=== PATIENT | female | born 1970 | race Caucasian/White ===

== ENCOUNTER 2020-03-16 14:25 | Emergency (ER) | payer MEDICARE, MEDICAID, SELFPAY ==
--- NOTE | ~2020-03-16 | XR_ITS ---
XR foot RT min 3V DATE: 03/16/2020 15:34 INDICATION: Injury 7 months ago; right anterior bridge foot pain TECHNIQUE: 4 views COMPARISON: 08/27/2019 right foot FINDINGS: Os arthritis at the first metatarsophalangeal joint. Osteoarthritic changes are also noted at the articulation of the navicular and medial cuneiform as well as the first tarsometatarsal joint. Prominent new dorsal spur at the dorsal aspect of the first tarsometatarsal joint. Plantar calcaneal enthesopathy. No fracture, dislocation, periosteal reaction or bone destruction. IMPRESSION: Polyarticular osteoarthritis with new prominent dorsal spur at first tarsometatarsal join t Reviewed, dictated and finalized at location A. IMPRESSION: Polyarticular osteoarthritis with new prominent dorsal spur at firs t tarsometatarsal joint
[2020-03-16 14:55] VITALS: BP 101/67; PULSE 61; RESP 14; TEMP 36.4; O2SAT 99
--- NOTE | 2020-03-16 15:26 | ED.LOWEXIN ---
HPI - Extremity Injury (Lower) General Chief Complaint: Extremity Injury, Lower Stated Complaint: sprined right foot Source: patient Mode of arrival: ambulatory Limitations: no limitations History of Present Illness HPI Narrative: patient is a 49-year-old female who injured her foot back in August she states it has been in pain ever since August, and a fairly steady discomfort. Patient stated that today she just felt like it was time to get looked at. She had no further injuries. Patient states she has seen her regular doctor about this. They felt like it might be gout, therefore they increased her medicine. It did not seem to help her foot. patient has good arch supports at home, however does not wear them most of the time. MD complaint: foot injury Onset (ago): month(s) Injury: Right: foot Place: home Severity: moderate Relieving factors: nothing ( Patient states does not completely go away at any time,) Exacerbating factors: weight bearing Context: fall Other symptoms: none Related Data Home Medications Medication Instructions Recorded Confirmed allopurinol 100 mg tablet 100 mg PO DAILY 07/26/19 03/16/20 cyclobenzaprine 10 mg PO PRN 08/27/19 03/16/20 dextroamphetamine-amphetamine 20 mg PO DAILY 08/27/19 03/16/20 [Adderall] fluoxetine 40 mg PO BID 08/27/19 03/16/20 gabapentin 600 mg PO TID 08/27/19 03/16/20 hydrochlorothiazide 12.5 mg PO DAILY 08/27/19 03/16/20 mirabegron [Myrbetriq] 25 mg PO DAILY 08/27/19 03/16/20 mirtazapine 45 mg PO HS 08/27/19 03/16/20 norethindrone-e.estradiol-iron 1 tablet PO DAILY 08/27/19 03/16/20 [Blisovi Fe 1.5/30 (28)] ondansetron HCl 4 mg PO PRN 08/27/19 03/16/20 oxybutynin chloride 10 mg PO DAILY 08/27/19 03/16/20 prazosin 5 mg PO HS 08/27/19 03/16/20 spironolactone 25 mg PO DAILY 08/27/19 03/16/20 oxycodone-acetaminophen 7.5 mg-325 1 tablet PO TID PRN tablet 08/31/19 03/16/20 mg tablet Allergies Allergy/AdvReac Type Severity Reaction Status Date / Time orange juice Allergy Intermediate Hives / Verified 06/13/19 13:58 Red Face Contrast Media AdvReac Intermediate PERFUSE Uncoded 05/24/19 15:00 SWEATING/NAUSEA/VOMITING Review of Systems Review of Systems: All systems reviewed & are unremarkable except as noted in HPI and below PMFSH Past Medical History Medical History Acid reflux Anxiety Bipolar disorder Broken nose X2 Gout History of CVA (cerebrovascular accident) Hypercholesterolemia Hypothyroidism Low blood potassium Schizoaffective disorder Surgical History Surgical History Delivery by section History of gastric bypass Family History Family History Grandparent Hypertension Breast cancer Thyroid disease Son Pancreatitis Liver disease Other Diabetes mellitus Family history of cardiovascular disease Family history of malignant neoplasm Family history of mental disorder Social History Social History Smoking status: Never smoker Alcohol intake: current Exam Const: General: no acute distress and alert Nutritional Appearance: well nourished and obese Orientation/consciousness: patient oriented x3 HENMT: Head: normal to inspection Neck: Neck: normal visual inspection Chest: Chest palpation & inspection: normal inspection of the chest Resp: Effort & Inspection: normal respiratory effort Auscultation: clear to auscultation bilaterally Cardio: Rate: regular rate Rhythm: regular rhythm GI: GI Palp: Yes Soft to palpation and No Tenderness to palpation present (GI) Auscultation: normal bowel sounds : General: Yes no CVA tenderness Skin: General skin exam: normal color Rashes: no rashes Neuro: General: patient oriented x3 and moves all extremities Speech:
[2020-03-16 15:44] VITALS: RESP 14; O2SAT 99
== END 2020-03-16 15:47 | disposition home or self-care (01) ==
PROVIDERS: Emergency Provider Emergency Medicine
DX: M13.871 Other specified arthritis, right ankle and foot (principal)
CPT/HCPCS: 73630; 99282; 99283

== ENCOUNTER 2020-09-13 07:14 | Outpatient (CLI) | payer MEDICARE, MEDICAID, SELFPAY ==
--- NOTE | ~2020-09-13 | XR_ITS ---
XR foot RT standing 2V, XR foot LT standing 2V 09/13/2020 09:52 Indication: Osteoarthritis. Foot pain. Procedure: 2 views of each foot Comparison: 03/16/2020 Findings: There is no mild osteoarthritis of the first metatarsal-phalangeal joints bilaterally, righ t greater than left. Lisfranc joints are intact. No erosive changes. There are small degenerative lynne caneal enthesophytes bilaterally. There are mild-moderate degenerative changes of the right midfoot. Impression: 1: Mild polyarticular osteoarthritis of the feet, right greater than left. Reviewed, dictated and finalized at location A. N WORKER Impression: 1: Mild polyarticular osteoarthritis of the feet, right greater than left. Impression: 1: Mild polyarticular osteoarthritis of the feet, right greater than left.
--- NOTE | ~2020-09-13 | XR_ITS ---
XR hip BI 2V w AP pelvis 09/13/2020 09:52 Indication: Osteoarthritis Procedure: 5 views of the hips including AP pelvis and 2 views each hip Comparison: 03/29/2013 Findings: Pelvic rings are intact. Sacral foramen are symmetric. No significant joint space narrowing . No fracture or traumatic malalignment. No erosive changes. Impression: 1: No significant bone or joint abnormality. Reviewed, dictated and finalized at location A. [employer] Impression: 1: No significant bone or joint abnormality.
--- NOTE | ~2020-09-13 | MR_ITS ---
EXAMINATION: MR foot RT wo/w con DATE: 09/13/2020 09:42 INDICATION: Right foot arthritis. Right foot pain. TECHNIQUE: Magnetic resonance imaging (MRI) of the right foot was performed without and with 17 mL Mu ltiHance intravenous contrast. Sequences included sagittal STIR FSE and T1-weighted FSE and short-axi s and long-axis T1-weighted FSE and T2-weighted FS FSE. Postcontrast sequences included short-axis an d long-axis T1-weighted FS FSE. COMPARISON: Right foot radiographs 09/13/2020, MRI 01/16/2016 FINDINGS: There is moderate hallux valgus. No fracture. There is severe osteoarthritis of medial ho culocuneiform joint and second and third tarsometatarsal joints. There is moderate osteoarthritis of first metatarsophalangeal joint. There is mild osteoarthritis of some of the interphalangeal joints a nd midfoot joints. There are changes of prior sprain of Lisfranc ligament characterized by increased signal intensity. No Lisfranc joint subluxation. The flexor and extensor tendons are normal. The musc le bellies are normal. IMPRESSION: 1. Polyarticular osteoarthritis, mildly worsened from 01/16/2016. No evidence of inflammatory arthropat hy. 2. Moderate hallux valgus. Reviewed, dictated and finalized at location A. 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 Polyarticular osteoarthritis, mildly worsened from 01/16/2016. No evidence of inflammatory arthropathy. 2. Moderate hallux valgus.
--- NOTE | ~2020-09-13 | XR_ITS ---
XR hand BI arthritis min 3V 09/13/2020 09:52 Indication: Osteoarthritis of the hands Procedure: 4 views of each hand Comparison: No prior studies for comparison. Findings: There is mild polyarticular osteoarthritis of the interphalangeal joints, first MCP and CMC joints. No erosive changes. No fracture or traumatic malalignment. No focal soft tissue abnormality. No foreign bodies. Impression: 1: Mild bilateral polyarticular osteoarthritis of the hands. Reviewed, dictated and finalized at location A. EACH COUNSELOR Impression: 1: Mild bilateral polyarticular osteoarthritis of the hands.
[2020-09-13 08:10] LABS: Basophils Percent Auto 0.6 % (0.2-1.2); Eosinophils Absolute Auto 0.3 K/mm3 (0-0.3); Eosinophils Percent Auto 5.4 % (0-4.4); Hemoglobin 11.6 g/dL (12.0-15.0); Immature Granulocyte Absolute 0.02 K/mm3 (0.00-0.031); Immature Granulocyte Percent A 0.4 % (0-0.5); Lymphocytes Absolute Auto 1.36 K/mm3 (0.9-3.2); Mean Corpuscular HGB Conc 32.2 g/dl (32-36); Mean Corpuscular Hemoglobin 30.1 pg (26-34); Mean Corpuscular Volume 93.5 fl (80-100); Mean Platelet Volume 10.1 fl (7.4-10.4); Monocytes Absolute Auto 0.5 K/mm3 (0.1-0.6); Monocytes Percent Auto 10.3 % (2.6-8.5); Neutrophils Absolute Auto 2.8 K/mm3 (1.3-6.7); Neutrophils Percent Auto 56.3 % (45.5-73.1); Platelet Count Result 261 k/mm3 (150-375); Red Blood Count 3.85 M/mm3 (4.2-5.4); Red Cell Distribution Width 13.1 % (11.5-14.5)
[2020-09-13 08:15] LABS: Add Urine Microscopic? YES; Appearance Urine Cloudy (Clear); Bacteria Urine Trace /hpf; Bilirubin Urine Negative (Negative); Blood Urine Negative (Negative); Color Urine Yellow (Yellow); Glucose Urine UA Negative (Negative); Ketones Urine Negative (Negative); Leukocyte Esterase Ur Negative LEU/UL (Negative); Mucus Urine Rare /lpf; Nitrate Urine Negative (Negative); Protein Urine Negative (Negative); RBC Urine 0-2 /hpf (0-2); Specific Grav Ur 1.012 (1.001-1.035); Squamous Epithelial Cell Urine Many /hpf (Few); Urobilinogen Urine Negative mg/dL (<2.0)
[2020-09-13 08:33] LABS: Erythrocyte Sedimentation Rate 19 mm/hr (0-20)
[2020-09-13 08:39] LABS: Alanine Aminotransferase 19 U/L (4-35); Albumin Level 3.8 g/dL (3.5-5.1); Alkaline Phosphatase 52 U/L (38-126); Anion Gap 7 mmol/L (8-16); Aspartate Amino Transferase 30 U/L (14-36); Bilirubin,Total 0.4 mg/dL (0.2-1.3); Blood Urea Nitrogen 15 mg/dL (7-17); Calcium 8.8 mg/dL (8.4-10.2); Carbon Dioxide 24 mmol/L (22-30); Chloride 106 mmol/L (98-107); Creatine Kinase 48 U/L (30-135); Estimated Glomerular Filt Rate > 60; Glucose 84 mg/dL (65-105); Lactate Dehydrogenase 639 U/L (313-618); Potassium 4.5 mmol/L (3.4-5.0); Sodium 137 mmol/L (137-145); Uric Acid 5.9 mg/dL (2.5-7.5)
[2020-09-13 08:40] LABS: Complement C3 104 mg/dL (88-165)
[2020-09-13 08:55] LABS: CRP 2.8 mg/dL (<1.0)
[2020-09-16 20:00] LABS: Anti Cardio Antibody IgM <12 MPL (<=12); Anti Cardiolipin Antibody IgA <11 APL (<=11); Anti Cardiolipin Antibody IgG <14 GPL (<=14)
[2020-09-21 01:00] LABS: Aldolase 3.9 U/L (<=8.1)
== END 2020-09-13 07:15 | disposition home or self-care (01) ==
PROVIDERS: Referring Provider Internal Medicine; Visit Provider Podiatrist Foot & Ankle Surgery
DX: M19.071 Primary osteoarthritis, right ankle and foot (principal); M20.11 Hallux valgus (acquired), right foot; M19.041 Primary osteoarthritis, right hand; M19.042 Primary osteoarthritis, left hand; M19.072 Primary osteoarthritis, left ankle and foot; Z79.899 Other long term (current) drug therapy
CPT/HCPCS: 36415; 73130; 73521; 73620; 73720; 80053; 81001; 82085; 82550; 83615; 84550; 85025; 85613; 85652; 85730; 86140; 86146; 86147; 86160; A9577

== ENCOUNTER 2020-10-03 13:56 | Outpatient (CLI) | payer MEDICARE, MEDICAID, SELFPAY ==
[2020-10-03 14:39] LABS: Add Urine Microscopic? YES; Appearance Urine Clear (Clear); Bacteria Urine Trace /hpf; Bilirubin Urine Negative (Negative); Blood Urine Negative (Negative); Color Urine Straw (Yellow); Glucose Urine UA Negative (Negative); Ketones Urine Negative (Negative); Leukocyte Esterase Ur Negative LEU/UL (Negative); Mucus Urine Rare /lpf; Nitrate Urine Negative (Negative); Protein Urine Negative (Negative); RBC Urine 0-2 /hpf (0-2); Specific Grav Ur 1.006 (1.001-1.035); Squamous Epithelial Cell Urine Rare /hpf (Few); Urobilinogen Urine Negative mg/dL (<2.0); WBC Urine 0-3 /hpf
[2020-10-03 14:43] LABS: Basophils Percent Auto 0.4 % (0.2-1.2); Eosinophils Percent Auto 0.4 % (0-4.4); Hematocrit 35.8 % (37.0-47.0); Hemoglobin 11.6 g/dL (12.0-15.0); Immature Granulocyte Absolute 0.09 K/mm3 (0.00-0.031); Immature Granulocyte Percent A 1.1 % (0-0.5); Lymphocytes Absolute Auto 1.83 K/mm3 (0.9-3.2); Lymphocytes Percent Auto 23.2 % (18.3-44.2); Mean Corpuscular HGB Conc 32.4 g/dl (32-36); Mean Corpuscular Hemoglobin 30.3 pg (26-34); Mean Corpuscular Volume 93.5 fl (80-100); Monocytes Absolute Auto 0.5 K/mm3 (0.1-0.6); Monocytes Percent Auto 5.8 % (2.6-8.5); Neutrophils Absolute Auto 5.5 K/mm3 (1.3-6.7); Neutrophils Percent Auto 69.1 % (45.5-73.1); Platelet Count Result 269 k/mm3 (150-375); Red Blood Count 3.83 M/mm3 (4.2-5.4); Red Cell Distribution Width 13.7 % (11.5-14.5); White Blood Count 7.9 K/mm3 (4.5-10.0)
[2020-10-03 14:53] LABS: Alanine Aminotransferase 21 U/L (4-35); Albumin Level 3.9 g/dL (3.5-5.1); Alkaline Phosphatase 71 U/L (38-126); Anion Gap 2 mmol/L (8-16); Aspartate Amino Transferase 26 U/L (14-36); Bilirubin,Total 0.4 mg/dL (0.2-1.3); Blood Urea Nitrogen 14 mg/dL (7-17); Calcium 9.3 mg/dL (8.4-10.2); Carbon Dioxide 31 mmol/L (22-30); Chloride 103 mmol/L (98-107); Creatine Kinase 45 U/L (30-135); Estimated Glomerular Filt Rate 48; Glucose 75 mg/dL (65-105); Lactate Dehydrogenase 508 U/L (313-618); Potassium 4.3 mmol/L (3.4-5.0); Sodium 136 mmol/L (137-145); Uric Acid 7.5 mg/dL (2.5-7.5)
[2020-10-03 15:32] LABS: Erythrocyte Sedimentation Rate 11 mm/hr (0-20)
[2020-10-05 19:17] LABS: Lupus dRVVT 1:1 Mix Interpreta Not Indicated; Lupus dRVVT Screen 35 sec (<=45); PTT-LA Screen 30 sec (<=40)
[2020-10-10 19:11] LABS: Aldolase 5.2 U/L (<=8.1)
== END 2020-10-03 13:57 | disposition home or self-care (01) ==
PROVIDERS: Visit Provider Internal Medicine
DX: M19.90 Unspecified osteoarthritis, unspecified site (principal); R76.8 Other specified abnormal immunological findings in serum; Z87.39 Personal history of other diseases of the musculoskeletal system and connective tissue; Z79.899 Other long term (current) drug therapy
CPT/HCPCS: 36415; 80053; 81001; 82085; 82550; 83615; 84550; 85025; 85613; 85652; 85730; 86146

== ENCOUNTER 2020-10-22 07:50 | Outpatient (CLI) | payer MEDICARE, MEDICAID, SELFPAY ==
--- NOTE | ~2020-10-22 | MM_ITS ---
EXAMINATION: MM screening clint BI w mariia HISTORY: Screening mammogram TECHNIQUE: Craniocaudal and mediolateral oblique 3-D tomosynthesis images were obtained and synthetic 2-D images were generated. CAD analysis was submitted and interpreted. COMPARISON: 06/10/2016, 03/18/2013 bilateral digital screening mammogram examinations BREAST PARENCHYMAL COMPOSITION: There are scattered areas of fibroglandular density. FINDINGS: There is no evidence of suspicious mass, calcification, or architectural distortion to sugg est malignancy in either breast. There has been no suspicious interval change. IMPRESSION: 1. No mammographic evidence of malignancy. 2. Recommend routine screening mammography in one year. BI-RADS Category 1: Negative Reviewed, dictated and finalized at location A. ATRIC ONCOLOGIST
== END 2020-10-22 07:51 | disposition home or self-care (01) ==
LOC: ANHIMG 07:54
PROVIDERS: Visit Provider Urology
DX: Z12.31 Encounter for screening mammogram for malignant neoplasm of breast (principal)
CPT/HCPCS: 77063; 77067

== ENCOUNTER 2020-11-22 10:57 | Outpatient (CLI) | payer MEDICARE, MEDICAID, SELFPAY ==
[2020-11-22 11:55] LABS: Hematocrit 40.7 % (37.0-47.0); Hemoglobin 12.9 g/dL (12.0-15.0); Mean Corpuscular HGB Conc 31.7 g/dl (32-36); Mean Corpuscular Hemoglobin 30.1 pg (26-34); Mean Corpuscular Volume 94.9 fl (80-100); Mean Platelet Volume 10.2 fl (7.4-10.4); Platelet Count Result 352 k/mm3 (150-375); Red Blood Count 4.29 M/mm3 (4.2-5.4); Red Cell Distribution Width 13.2 % (11.5-14.5); White Blood Count 5.8 K/mm3 (4.5-10.0)
[2020-11-22 11:59] LABS: Add Urine Microscopic? YES; Appearance Urine Cloudy (Clear); Bilirubin Urine Negative (Negative); Blood Urine 2+ (Negative); Color Urine Yellow (Yellow); Glucose Urine UA Negative (Negative); Ketones Urine Negative (Negative); Leukocyte Esterase Ur Negative LEU/UL (Negative); Mucus Urine Rare /lpf; Nitrate Urine Negative (Negative); Protein Urine Negative (Negative); RBC Urine 0-2 /hpf (0-2); Specific Grav Ur 1.009 (1.001-1.035); Squamous Epithelial Cell Urine Many /hpf (Few); Urobilinogen Urine Negative mg/dL (<2.0); WBC Urine 0-3 /hpf
[2020-11-22 12:11] LABS: Alanine Aminotransferase 16 U/L (4-35); Albumin Level 4.1 g/dL (3.5-5.1); Alkaline Phosphatase 91 U/L (38-126); Anion Gap 6 mmol/L (8-16); Aspartate Amino Transferase 25 U/L (14-36); Bilirubin,Total 0.3 mg/dL (0.2-1.3); Blood Urea Nitrogen 10 mg/dL (7-17); CRP 1.9 mg/dL (<1.0); Calcium 9.4 mg/dL (8.4-10.2); Carbon Dioxide 26 mmol/L (22-30); Chloride 107 mmol/L (98-107); Estimated Glomerular Filt Rate > 60; Glucose 104 mg/dL (65-105); Potassium 4.4 mmol/L (3.4-5.0); Sodium 139 mmol/L (137-145); Uric Acid 3.6 mg/dL (2.5-7.5)
[2020-11-22 12:15] LABS: Complement C3 107 mg/dL (88-165)
[2020-11-22 12:21] LABS: Erythrocyte Sedimentation Rate 6 mm/hr (0-20)
== END 2020-11-22 10:58 | disposition home or self-care (01) ==
PROVIDERS: Visit Provider Internal Medicine
DX: R76.8 Other specified abnormal immunological findings in serum (principal); M35.9 Systemic involvement of connective tissue, unspecified; M19.90 Unspecified osteoarthritis, unspecified site
CPT/HCPCS: 36415; 80053; 81001; 84550; 85027; 85652; 86140; 86160; 86225

== ENCOUNTER 2020-12-21 15:02 | Outpatient (CLI) | payer MEDICARE, MEDICAID, SELFPAY ==
--- NOTE | 2020-12-21 | ECG_ITS ---
Measurements Intervals [place] Rate: 78 P: 44 VT: 187 QRS: -27 QRSD: 87 T: 29 QT: 376 QTc: 430 Interpretive Statements SINUS RHYTHM NORMAL ECG Electronically Signed On 12-21-2020 15:54:59 CDT by Juarez Pascal D.O.
== END 2020-12-21 15:03 | disposition home or self-care (01) ==
PROVIDERS: PCP Family Medicine
DX: Z79.899 Other long term (current) drug therapy (principal)
CPT/HCPCS: 93005

== ENCOUNTER 2020-12-25 16:18 | Emergency (ER) | payer MEDICARE, MEDICAID, SELFPAY ==
--- NOTE | ~2020-12-25 | XR_ITS ---
EXAMINATION: XR chest 2V DATE: 12/25/2020 17:08 INDICATION: Left posterior chest pain. TECHNIQUE: Frontal and lateral views of the chest were obtained. COMPARISON: Chest 2 views 01/23/2015 FINDINGS: The chest demonstrates clear lungs without pneumonia, pleural effusion, or pneumothorax. Th e heart size is normal. IMPRESSION: 1. No acute cardiopulmonary disease. Reviewed, dictated and finalized at location A.
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
[2020-12-25 16:49] VITALS: BP 149/108; PULSE 98; RESP 20; TEMP 36.2; O2SAT 100
[2020-12-25] MEDS: NEOMYCIN/POLYMYXIN/BACITRACIN OINTMENT 15 GM TUBE 1 APPLIC (17:07)
[2020-12-25] MEDS: LIDOCAINE HCL 2% JELLY 5 ML TUBE 1 APPLIC TOPICAL (17:07)
[2020-12-25 18:14] VITALS: BP 138/101; PULSE 85; RESP 20; TEMP 36.7; O2SAT 98
== END 2020-12-25 18:16 | disposition home or self-care (01) ==
PROVIDERS: Emergency Provider Emergency Medicine; PCP Family Medicine
DX: S09.90XA Unspecified injury of head, initial encounter (principal); T14.8XXA Other injury of unspecified body region, initial encounter
CPT/HCPCS: 70450; 71046; 99283; 99284; A9270

== ENCOUNTER 2021-01-15 15:36 | Outpatient (CLI) | payer MEDICARE, MEDICAID, SELFPAY ==
--- NOTE | ~2021-01-15 | XR_ITS ---
EXAMINATION: XR lumbar spine 2-3V DATE: 01/15/2021 16:17 INDICATION: Generalized back pain. TECHNIQUE: Anteroposterior and lateral views of the lumbar spine, and cone-down lateral view of the l umbosacral junction were obtained. COMPARISON: 11/09/2017 FINDINGS: 1-2 mm anterolisthesis L2 on L3 and 3 mm anterolisthesis L4 on L5. Vertebral body heights are normal. Multilevel mild disc height loss from T12-L1 through L4-L5. Mild to moderate lower lumbar predominan t facet osteoarthritis. Sacrum and bilateral sacral iliac joints are unremarkable. Suture lines in th e epigastric region. IMPRESSION: 1. Interval progression of mild to moderate lumbar spondylosis. Reviewed, dictated and finalized at location A.
--- NOTE | ~2021-01-15 | XR_ITS ---
EXAMINATION:XR_CERV2-3V_CR DATE: 01/15/2021 16:16 INDICATION: Neck pain TECHNIQUE: AP, lateral, lateral swimmers and odontoid views of the cervical spine are provided. COMPARISON: 02/22/2016 FINDINGS: 1-2 mm anterolisthesis C3 on C4. 3 mm anterolisthesis C4 on C5. Odontoid is intact. Osteoarthritis at the atlantoaxial articulation. Vertebral body heights are normal. Mild disc height loss at C4-C5, mi ld to moderate disc height loss at C5-C6 and moderate disc height loss at C6-C7. Moderate to severe f acet osteoarthritis at C2-C3 through C4-C5 and C6-C7. Prevertebral soft tissues are normal. IMPRESSION: 1. Moderate cervical spondylosis. Reviewed, dictated and finalized at location A.
--- NOTE | ~2021-01-15 | XR_ITS ---
EXAMINATION: XR shoulder LT min 2V, XR shoulder RT min 2V DATE: 01/15/2021 16:18 INDICATION: TECHNIQUE: 1. AP internally and externally rotated, AP oblique externally rotated and transscapular Y views of t he left shoulder were obtained. 2. AP internally and externally rotated, AP oblique externally rotated and transscapular Y views of t he right shoulder were obtained. COMPARISON: None FINDINGS: Normal alignment at both shoulders. No fracture.Lateral glenohumeral and acromioclavicular joints ar e normal. Soft tissues are unremarkable. Visualized portions of the lungs are clear. IMPRESSION: Negative bilateral shoulder radiographs. Reviewed, dictated and finalized at location A. IMPRESSION: Negative bilateral shoulder radiographs.
--- NOTE | ~2021-01-15 | XR_ITS ---
EXAMINATION: XR knee LT 2V, XR knee RT 2V DATE: 01/15/2021 16:16 INDICATION: Bilateral knee pain TECHNIQUE: 1. AP and lateral views of the left knee were obtained. 2. AP and lateral views of the right knee were obtained. COMPARISON: Bilateral knee radiographs dated 05/06/2018 FINDINGS: Normal alignment at both knees. No fracture. Again seen is mild bilateral patellofemoral osteoarthrit is with tiny marginal osteophytes. Soft tissues are unremarkable. No knee joint effusions. IMPRESSION: 1. Unchanged mild bilateral patellofemoral osteoarthritis. Reviewed, dictated and finalized at location A. IMPRESSION: 1. Unchanged mild bilateral patellofemoral osteoarthritis.
== END 2021-01-15 15:37 | disposition home or self-care (01) ==
LOC: CHSIMG 15:40
PROVIDERS: PCP Family Medicine; Visit Provider Pain Medicine Interventional Pain Medicine
DX: M54.16 Radiculopathy, lumbar region (principal); M25.519 Pain in unspecified shoulder; M54.12 Radiculopathy, cervical region; G89.4 Chronic pain syndrome; M54.17 Radiculopathy, lumbosacral region; M25.569 Pain in unspecified knee
CPT/HCPCS: 72040; 72100; 73030; 73560

== ENCOUNTER 2021-11-25 15:14 | Outpatient (CLI) | payer MEDICARE, MEDICAID, SELFPAY ==
[2021-11-25 15:31] LABS: Hematocrit 35.9 % (35.0-49.0); Hemoglobin 11.4 g/dL (12.0-15.0); Mean Corpuscular HGB Conc 31.8 g/dL (32.0-36.0); Mean Corpuscular Hemoglobin 29.7 pg (27.0-31.0); Mean Corpuscular Volume 93.5 fL (78.0-102.0); Mean Platelet Volume 10.3 fl (9.2-11.8); Platelet Count Result 340 K/mm3 (150-420); Red Blood Count 3.84 M/mm3 (4.20-5.40); Red Cell Distribution Width 13.2 % (11.6-14.4); White Blood Count 7.3 K/mm3 (4.8-10.8)
[2021-11-25 15:51] LABS: Add Urine Microscopic? NO; Appearance Urine Clear (Clear); Bilirubin Urine Negative (Negative); Blood Urine Negative (Negative); Color Urine Yellow (Yellow); Glucose Urine UA Negative (Negative); Ketones Urine Negative (Negative); Leukocyte Esterase Ur Negative LEU/UL (Negative); Nitrate Urine Negative (Negative); Protein Urine Negative (Negative); Specific Grav Ur >= 1.030 (1.010-1.020); Urobilinogen Urine 0.2 mg/dL (0.2-1.0)
[2021-11-25 16:17] LABS: Alanine Aminotransferase 48 U/L (14-59); Albumin Level 3.2 g/dL (3.4-5.0); Alkaline Phosphatase 178 U/L (46-116); Anion Gap 11 mmol/L (8-16); Aspartate Amino Transferase 28 U/L (15-37); Bilirubin,Total 0.2 mg/dL (0.00-1.00); Blood Urea Nitrogen 12 mg/dL (7-18); CRP 2.6 mg/dL (0.0-0.9); Calcium 8.8 mg/dL (8.5-10.1); Carbon Dioxide 24 mmol/L (21-32); Chloride 105 mmol/L (98-108); Estimated Glomerular Filt Rate > 60; Glucose 138 mg/dL (70-99); Osmolality Calculated 291 mOsm/kg (285-295); Potassium 4.5 mmol/L (3.5-5.1); Sodium 140 mmol/L (136-145); Total Protein 6.6 g/dL (6.4-8.2)
[2021-11-25 16:44] LABS: Erythrocyte Sedimentation Rate 30 mm/hr (0-20)
== END 2021-11-25 15:15 | disposition home or self-care (01) ==
LOC: CHSLAB 15:20
PROVIDERS: PCP Family Medicine; Visit Provider Internal Medicine
DX: M35.9 Systemic involvement of connective tissue, unspecified (principal); M19.90 Unspecified osteoarthritis, unspecified site
CPT/HCPCS: 36415; 80053; 81003; 85027; 85652; 86140

== ENCOUNTER 2022-03-12 21:34 | Emergency (ER) | payer MEDICARE, MEDICAID, SELFPAY ==
[2022-03-12] VITALS (11 sets, daily range): BP systolic 109–127; BP diastolic 54–73; PULSE 51–65; RESP 11–18; O2SAT 99–100
--- NOTE | 2022-03-12 21:52 | ED.GENADULT ---
HPI - General Adult General Stated complaint: low blood pressure Time Seen by Provider: 03/12/22 21:52 Source: patient and RN notes reviewed Mode of arrival: wheelchair Limitations: no limitations Related Data Home Medications Medication Instructions Recorded Confirmed dextroamphetamine-amphetamine 20 30 mg PO DAILY 08/27/19 04/30/21 mg tablet (Adderall) fluoxetine 40 mg capsule 60 mg PO HS 08/27/19 04/30/21 gabapentin 600 mg tablet 600 mg PO TID 08/27/19 04/30/21 mirabegron 25 mg tablet,extended 25 mg PO DAILY 08/27/19 04/30/21 release 24 hr (Myrbetriq) mirtazapine 45 mg tablet 45 mg PO HS 08/27/19 04/30/21 ondansetron HCl 4 mg tablet 4 mg PO PRN 08/27/19 04/30/21 oxybutynin chloride 10 mg 10 mg PO DAILY 08/27/19 04/30/21 tablet,extended release 24 hr (Ditropan XL) prazosin 5 mg capsule 5 mg PO HS 08/27/19 04/30/21 oxycodone-acetaminophen 7.5 mg-325 1 tablet PO TID PRN Pain 08/31/19 04/30/21 mg tablet (Percocet) aspirin 81 mg tablet 81 mg PO DAILY 12/25/20 04/30/21 diazepam 5 mg tablet 5 mg PO BID PRN Anxiety 12/25/20 04/30/21 levothyroxine 75 mcg tablet 50 mcg PO DAILY 12/25/20 04/30/21 lidocaine 5 % topical ointment 1 applic topical BID PRN Pain 12/25/20 04/30/21 metoclopramide HCl 5 mg tablet 5 mg PO TID 12/25/20 04/30/21 norethindrone 1.5 mg-ethinyl 1 tablet PO DAILY 12/25/20 04/30/21 estradiol 30 mcg(21)/iron 75 mg(7) tablet (Aurovela Fe 1.5/30 (28)) nortriptyline 50 mg capsule 100 mg PO DAILY 12/25/20 04/30/21 pantoprazole 40 mg tablet,delayed 40 mg PO BID 12/25/20 04/30/21 release potassium chloride 20 mEq oral 20 meq PO BID 12/25/20 04/30/21 packet (Klor-Con) propranolol 40 mg tablet 40 mg PO DAILY 12/25/20 04/30/21 rifaximin 550 mg tablet (Xifaxan) 550 mg PO DAILY 12/25/20 04/30/21 Allergies Allergy/AdvReac Type Severity Reaction Status Date / Time orange juice Allergy Intermediate Hives / Verified 11/29/21 10:29 Red Face Contrast Media AdvReac Intermediate PERFUSE Uncoded 11/29/21 10:29 SWEATING/NAUSEA/VOMITING PMFSH Past Medical History Medical History Acid reflux Anxiety Bipolar disorder Broken nose X2 Generalized osteoarthritis of multiple sites Gout H/O: gout (~2015) History of CVA (cerebrovascular accident) Hypercholesterolemia Hypothyroidism Low blood potassium 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 Gender identity (if verbalized by the patient): Female Discharge Plan Discharge Prescriptions: No Action fluoxetine 40 mg capsule 60 mg PO HS gabapentin 600 mg tablet 600 mg PO TID oxybutynin chloride [Ditropan XL] 10 mg tablet extended release 24hr 10 mg PO DAILY ondansetron HCl 4 mg tablet 4 mg PO PRN prazosin 5 mg capsule 5 mg PO HS mirtazapine 45 mg tablet 45 mg PO HS Myrbetriq 25 mg tablet extended release 24 hr 25 mg PO DAILY dextroamphetamine-amphetamine [Adderall] 20 mg Tablet 30 mg PO DAILY norethindrone-e.estradiol-iron [Aurovela Fe 1.5/30 (28)] 1.5 mg-30 mcg (21)/75 mg (7) tablet 1 tablet PO DAILY potassium chloride [Klor-Con] 20 mEq packet 20 meq PO BID propranolol 40 mg tablet 40 mg PO DA
--- NOTE | 2022-03-12 22:09 | ED.DIZZY ---
HPI - Dizziness General Chief Complaint: Dizziness Stated Complaint: low blood pressure Time Seen by Provider: 03/12/22 21:52 Source: patient and RN notes reviewed Mode of arrival: wheelchair Limitations: no limitations History of Present Illness MD elicited complaint: dizziness Pertinent past history: other ( new medications) Onset (ago): day(s) (5) Timing: gradual onset Severity: moderate Related Data Home Medications Medication Instructions Recorded Confirmed mirabegron 25 mg tablet,extended 25 mg PO DAILY 08/27/19 03/12/22 release 24 hr (Myrbetriq) mirtazapine 45 mg tablet 45 mg PO HS 08/27/19 03/12/22 oxybutynin chloride 10 mg 10 mg PO DAILY 08/27/19 03/12/22 tablet,extended release 24 hr (Ditropan XL) prazosin 5 mg capsule 5 mg PO HS 08/27/19 03/12/22 diazepam 5 mg tablet 5 mg PO BID PRN Anxiety 12/25/20 03/12/22 levothyroxine 75 mcg tablet 50 mcg PO DAILY 12/25/20 03/12/22 norethindrone 1.5 mg-ethinyl 1 tablet PO DAILY 12/25/20 03/12/22 estradiol 30 mcg(21)/iron 75 mg(7) tablet (Aurovela Fe 1.5/30 (28)) pantoprazole 40 mg tablet,delayed 40 mg PO BID 12/25/20 03/12/22 release potassium chloride 20 mEq oral 20 meq PO BID 12/25/20 03/12/22 packet (Klor-Con) propranolol 40 mg tablet 40 mg PO DAILY 12/25/20 03/12/22 buprenorphine HCl 2 mg sublingual 1 tablet sublingual BID 03/12/22 03/12/22 tablet diclofenac sodium 1 % topical gel 1 ea topical PRN PRN Pain 03/12/22 03/12/22 esomeprazole magnesium 40 mg 1 cap PO DAILY 03/12/22 03/12/22 capsule,delayed release fluticasone furoate 100 1 ea inhalation DAILY 03/12/22 03/12/22 mcg-vilanterol 25 mcg/dose inhalation powder (Breo Ellipta) venlafaxine 50 mg tablet 1 tablet PO DAILY 03/12/22 03/12/22 ziprasidone HCl 80 mg capsule 1 cap PO DAILY 03/12/22 03/12/22 Allergies Allergy/AdvReac Type Severity Reaction Status Date / Time orange juice Allergy Intermediate Hives / Verified 03/12/22 22:15 Red Face Contrast Media AdvReac Intermediate PERFUSE Uncoded 03/12/22 22:15 SWEATING/NAUSEA/VOMITING PMFSH Past Medical History Medical History Acid reflux Anxiety Bipolar disorder Broken nose X2 Generalized osteoarthritis of multiple sites Gout H/O: gout (~2015) History of CVA (cerebrovascular accident) Hypercholesterolemia Hypothyroidism Low blood potassium Other fpc (current) drug therapy Schizoaffective disorder Undifferentiated connective tissue disease Surgical History Surgical History Delivery by section History of gastric bypass Family History Family History Grandparent Hypertension Breast cancer Thyroid disease Son Pancreatitis Liver disease Other Diabetes mellitus Family history of cardiovascular disease Family history of malignant neoplasm Family history of mental disorder Social History Social History Smoking status: Never smoker Alcohol intake: current Alcohol use details: Pt drinks occasionally. Gender identity (if verbalized by the patient): Female Exam Const: General: no acute distress, alert and ill appearing acutely Nutritional Appearance: well nourished Orientation/consciousness: patient oriented x3 HENMT: Head: normal to inspection Face and sinus: normal facial exam Eyes: Conjunctivae: conjunctivae normal Pupils: Equal, round and reactive pupils present EOM: EOMs intact bilaterally Neck: Neck: normal visual inspection Resp: Effort & Inspection: normal respiratory effort Auscultation: clear to auscultation bilaterally Cardio: Rate: regular rate Rhythm: regular rhythm GI: GI Palp: Yes Soft to palpation and No Tenderness to palpation present (GI) Auscultation: normal bowel sounds Back/Spine/Pelvis: Cervical Spine: cervical ROM normal
[2022-03-12 22:22] LABS: Basophils Absolute Auto 0.04 K/mm3 (0.00-0.10); Basophils Percent Auto 0.5 % (0.0-1.0); Eosinophils Absolute Auto 0.45 K/mm3 (0.02-0.50); Eosinophils Percent Auto 5.6 % (1.0-6.0); Hematocrit 35.2 % (35.0-49.0); Hemoglobin 11.5 g/dL (12.0-15.0); Immature Granulocyte Absolute 0.02 K/mm3 (0.00-0.00); Immature Granulocyte Percent A 0.3 % (0.0-0.0); Lymphocytes Absolute Auto 2.29 K/mm3 (1.10-4.50); Lymphocytes Percent Auto 28.7 % (18.0-42.0); Mean Corpuscular HGB Conc 32.7 g/dL (32.0-36.0); Mean Corpuscular Hemoglobin 28.6 pg (27.0-31.0); Mean Corpuscular Volume 87.6 fL (78.0-102.0); Mean Platelet Volume 11.7 fl (9.2-11.8); Monocytes Absolute Auto 0.71 K/mm3 (0.10-0.90); Monocytes Percent Auto 8.9 % (2.0-11.0); Neutrophils Absolute Auto 4.5 K/mm3 (1.7-7.2); Platelet Count Result 238 K/mm3 (150-420); Red Blood Count 4.02 M/mm3 (4.20-5.40); Red Cell Distribution Width 13.4 % (11.6-14.4)
--- NOTE | 2022-03-12 22:24 | PC.NURSE ---
PT HAS UTILIZED THE CALL LIGHT X2. STATING SHE NEEDED HER BP RECHECKED AND WOULD LIKE IT TO CYCLE ON A ROUTINE INTERVAL, ASSURED PT THAT THIS WILL OCCUR, HOWEVER SHE DOES HAVE TO BE ON THE MONITOR FOR A MINIMUM OF 15 MINUTES BEFORE IT WILL RETAKE. PT IS ANXIOUS, SLIGHTLY BIZARRE BEHAVIOR NOTED. PT FLOPPED ONTO THE STRETCHER ON HER ABD, STATING, THAT'S HOW I DO IT. PT HAS FRIEND AT BEDSIDE. PT REPORTS SX ONSET OF 2 MONTHS THAT SHE IS DIZZY WITH STANDING, AND FEELS IF SHE IS GOING TO PASS OUT, SHE WAS ABLE TO WATCH HER GRANDCHILD YESTERDAY AND TAKE HER CAR INTO THE SHOP THE DAY BEFORE WITHOUT ANY ISSUES.
[2022-03-12 22:37] LABS: Alanine Aminotransferase 25 U/L (14-59); Albumin Level 2.8 g/dL (3.4-5.0); Alkaline Phosphatase 102 U/L (46-116); Anion Gap 10 mmol/L (8-16); Aspartate Amino Transferase 18 U/L (15-37); Bilirubin,Total 0.3 mg/dL (0.00-1.00); Blood Urea Nitrogen 13 mg/dL (7-18); Calcium 8.6 mg/dL (8.5-10.1); Carbon Dioxide 24 mmol/L (21-32); Chloride 108 mmol/L (98-108); Estimated Glomerular Filt Rate 47; Glucose 96 mg/dL (70-99); Magnesium 1.5 mg/dL (1.8-2.4); Osmolality Calculated 294 mOsm/kg (285-295); Potassium 3.6 mmol/L (3.5-5.1); Sodium 142 mmol/L (136-145)
[2022-03-12] MEDS: MECLIZINE HCL 25 MG TABLET PO (22:40)
--- NOTE | 2022-03-12 23:27 | PC.NURSE ---
PT REPORTS DIZZINESS IS BETTER, REPORTS SHE COULD NOT MOVE HER HEAD FROM SIDE TO SIDE WITHOUT BEING DIZZY. PT REPORTS SX IMPROVED POST MEDICATION. WILL CONTINUE TO MONITOR.
== END 2022-03-12 23:40 | disposition home or self-care (01) ==
PROVIDERS: Emergency Provider Emergency Medicine; PCP Family Medicine
DX: H81.10 Benign paroxysmal vertigo, unspecified ear (principal); E83.42 Hypomagnesemia; K21.9 Gastro-esophageal reflux disease without esophagitis; Z86.73 Personal history of transient ischemic attack (TIA), and cerebral infarction without residual deficits; E03.9 Hypothyroidism, unspecified; E78.00 Pure hypercholesterolemia, unspecified; Z79.899 Other long term (current) drug therapy
CPT/HCPCS: 36415; 80053; 83735; 85025; 99283; A9270

== ENCOUNTER 2022-04-01 09:01 | Outpatient (CLI) | payer MEDICARE, MEDICAID, SELFPAY ==
[2022-04-01 09:30] LABS: Hematocrit 35.3 % (37.0-47.0); Hemoglobin 11.4 g/dL (12.0-15.0); Mean Corpuscular HGB Conc 32.3 g/dl (32-36); Mean Corpuscular Hemoglobin 28.4 pg (26-34); Mean Platelet Volume 11.2 fl (7.4-10.4); Platelet Count Result 230 k/mm3 (150-375); Red Blood Count 4.01 M/mm3 (4.2-5.4); Red Cell Distribution Width 13.8 % (11.5-14.5); White Blood Count 5.5 K/mm3 (4.5-10.0)
[2022-04-01 09:54] LABS: Alanine Aminotransferase 20 U/L (6-35); Albumin Level 3.6 g/dL (3.5-5.1); Alkaline Phosphatase 81 U/L (38-126); Anion Gap 3 mmol/L (8-16); Aspartate Amino Transferase 24 U/L (14-36); Bilirubin,Total 0.2 mg/dL (0.2-1.3); Blood Urea Nitrogen 6 mg/dL (7-17); CRP < 0.5 mg/dL (<1.0); Calcium 8.7 mg/dL (8.4-10.2); Carbon Dioxide 25 mmol/L (22-30); Chloride 112 mmol/L (98-107); Estimated Glomerular Filt Rate 52; Glucose 99 mg/dL (65-110); Potassium 3.9 mmol/L (3.4-5.0); Sodium 140 mmol/L (137-145); Uric Acid 5.5 mg/dL (2.5-7.5)
[2022-04-01 10:08] LABS: Bacteria Urine 1+ /hpf; Mucus Urine Rare /lpf; RBC Urine 0-2 /hpf (0-2); Squamous Epithelial Cell Urine Rare /hpf (Few); WBC Urine 0-3 /hpf
[2022-04-01 10:26] LABS: Appearance Urine Clear (Clear); Bilirubin Urine Negative (Negative); Blood Urine Negative (Negative); Color Urine Yellow (Yellow); Glucose Urine UA Negative (Negative); Ketones Urine Negative (Negative); Leukocyte Esterase Ur Negative LEU/UL (Negative); Nitrate Urine Negative (Negative); Protein Urine Negative (Negative); Urobilinogen Urine 0.2 mg/dL (<2.0); pH Urine 5.5 (5.0-9.0)
[2022-04-01 10:29] LABS: Add Urine Microscopic? NO
[2022-04-01 11:09] LABS: Erythrocyte Sedimentation Rate 9 mm/hr (0-20)
== END 2022-04-01 09:02 | disposition home or self-care (01) ==
PROVIDERS: PCP Family Medicine; Visit Provider Internal Medicine
DX: M35.9 Systemic involvement of connective tissue, unspecified (principal); M19.90 Unspecified osteoarthritis, unspecified site; Z87.39 Personal history of other diseases of the musculoskeletal system and connective tissue
CPT/HCPCS: 36415; 80053; 81003; 84550; 85027; 85652; 86140

== ENCOUNTER 2022-07-11 17:11 | Emergency (ER) | payer MEDICARE, MEDICAID, SELFPAY ==
--- NOTE | 2022-07-11 17:14 | ED.FEMALEGU ---
HPI - Female Genitourinary General Chief complaint: Urogenital-Female Stated complaint: possible uti Time Seen by Provider: 07/11/22 17:19 Source: patient and RN notes reviewed Mode of arrival: ambulatory Limitations: no limitations History of Present Illness MD elicited complaint: dysuria and UTI Onset (ago): week(s) (2) Severity: moderate Urinary symptoms: Dysuria, Urgency and Frequency Exacerbating factors: urination Relieving factors: none Associated symptoms: denies other symptoms Related Data Home Medications Medication Instructions Recorded Confirmed mirabegron 25 mg tablet,extended 25 mg PO DAILY 08/27/19 03/12/22 release 24 hr (Myrbetriq) mirtazapine 45 mg tablet 45 mg PO HS 08/27/19 03/12/22 oxybutynin chloride 10 mg 10 mg PO DAILY 08/27/19 03/12/22 tablet,extended release 24 hr (Ditropan XL) prazosin 5 mg capsule 5 mg PO HS 08/27/19 03/12/22 diazepam 5 mg tablet 5 mg PO BID PRN Anxiety 12/25/20 03/12/22 levothyroxine 75 mcg tablet 50 mcg PO DAILY 12/25/20 03/12/22 norethindrone 1.5 mg-ethinyl 1 tablet PO DAILY 12/25/20 03/12/22 estradiol 30 mcg(21)/iron 75 mg(7) tablet (Aurovela Fe 1.5/30 (28)) pantoprazole 40 mg tablet,delayed 40 mg PO BID 12/25/20 03/12/22 release potassium chloride 20 mEq oral 20 meq PO BID 12/25/20 03/12/22 packet (Klor-Con) propranolol 40 mg tablet 40 mg PO DAILY 12/25/20 03/12/22 buprenorphine HCl 2 mg sublingual 1 tablet sublingual BID 03/12/22 03/12/22 tablet diclofenac sodium 1 % topical gel 1 ea topical PRN PRN Pain 03/12/22 03/12/22 esomeprazole magnesium 40 mg 1 cap PO DAILY 03/12/22 03/12/22 capsule,delayed release fluticasone furoate 100 1 ea inhalation DAILY 03/12/22 03/12/22 mcg-vilanterol 25 mcg/dose inhalation powder (Breo Ellipta) venlafaxine 50 mg tablet 1 tablet PO DAILY 03/12/22 03/12/22 ziprasidone HCl 80 mg capsule 1 cap PO DAILY 03/12/22 03/12/22 buprenorphine HCl 2 mg sublingual 2 mg sublingual DAILY 04/01/22 tablet magnesium oxide 400 mg PO DAILY 04/01/22 Allergies Allergy/AdvReac Type Severity Reaction Status Date / Time orange juice Allergy Intermediate Hives / Verified 04/01/22 09:59 Red Face Contrast Media AdvReac Intermediate PERFUSE Uncoded 04/01/22 09:59 SWEATING/NAUSEA/VOMITING Review of Systems Review of Systems: All systems reviewed & are unremarkable except as noted in HPI and below Constitutional: Constitutional: Denies chills Gastrointestinal: Gastrointestinal: Denies nausea and Denies vomiting PMFSH Past Medical History Medical History (Updated 07/11/22 @ 17:48 by Stanley Arellano MD) Acid reflux Anxiety Bipolar disorder Broken nose X2 Generalized osteoarthritis of multiple sites Gout H/O: gout (~2015) History of CVA (cerebrovascular accident) Hypercholesterolemia Hypothyroidism Low blood potassium Other [facility] (current) drug therapy Schizoaffective disorder Undifferentiated connective tissue disease Surgical History Surgical History (Updated 07/11/22 @ 17:20 by Stanley Arellano MD) Delivery by section History of gastric bypass History of rhinoplasty Hx of cholecystectomy Family History Family History Grandparent Hypertension Breast cancer Thyroid disease Son Pancreatitis Liver disease Other Diabetes mellitus Family history of cardiovascular disease Family history of malignant neoplasm Family history of mental disorder Social History Social History Smoking status: Never smoker Alcohol intake: current Alcohol use details: Pt drinks occasionally. Gender identity (if verbalized by the patient): Female Exam Const: General: healthy appearing and no acute distress Nutritional Appearance: well nourished Orientation/consciousness: patient oriented x3 HENMT: Head: normal to inspection Ears: external ears normal Eyes: Co
[2022-07-11 17:18] VITALS: BP 137/92; PULSE 74; RESP 16; TEMP 36.5; O2SAT 99
[2022-07-11 17:20] VITALS: BP 138/92; PULSE 72; RESP 20; TEMP 36.5; O2SAT 100
[2022-07-11 17:27] LABS: Appearance Urine Clear (Clear); Bilirubin Urine Negative (Negative); Blood Urine Negative (Negative); Glucose Urine UA Negative (Negative); Ketones Urine Negative (Negative); Leukocyte Esterase Ur 1+ LEU/UL (Negative); Nitrate Urine Negative (Negative); Protein Urine Negative (Negative); Specific Grav Ur <= 1.005 (1.010-1.020); Urobilinogen Urine 0.2 mg/dL (0.2-1.0)
[2022-07-11 17:34] LABS: Add Urine Microscopic? YES; Bacteria Urine 1+ /hpf; Color Urine Light Yellow (Yellow); RBC Urine None seen /hpf (0-2); Squamous Epithelial Cell Urine Few /hpf (Few)
[2022-07-11 18:03] VITALS: BP 138/92; PULSE 72; RESP 20; TEMP 36.5; O2SAT 100
== END 2022-07-11 18:10 | disposition home or self-care (01) ==
PROVIDERS: Emergency Provider Emergency Medicine; PCP Family Medicine
DX: N30.00 Acute cystitis without hematuria (principal); E78.00 Pure hypercholesterolemia, unspecified; E03.9 Hypothyroidism, unspecified
CPT/HCPCS: 81001; 87077; 87086; 87088; 87186; 99283

== ENCOUNTER 2023-06-10 10:34 | Outpatient (CLI) | payer MEDICARE, MEDICAID, SELFPAY ==
[2023-06-10 10:52] LABS: Hemoglobin 11.2 g/dL (12.0-15.0); Mean Corpuscular HGB Conc 32.9 g/dL (32.0-36.0); Mean Corpuscular Hemoglobin 29.6 pg (27.0-31.0); Mean Corpuscular Volume 89.9 fL (78.0-102.0); Platelet Count Result 227 K/mm3 (150-420); Red Blood Count 3.78 M/mm3 (4.20-5.40); Red Cell Distribution Width 12.9 % (11.6-14.4); White Blood Count 3.2 K/mm3 (4.8-10.8)
[2023-06-10 10:59] LABS: Appearance Urine Clear (Clear); Bilirubin Urine Negative (Negative); Blood Urine Negative (Negative); Color Urine Light Yellow (Yellow); Glucose Urine UA Negative (Negative); Ketones Urine Negative (Negative); Leukocyte Esterase Ur Trace LEU/UL (Negative); Nitrate Urine Negative (Negative); Protein Urine Negative (Negative); Urobilinogen Urine 0.2 mg/dL (0.2-1.0); pH Urine 5.5 (5.0-8.0)
[2023-06-10 11:03] LABS: Add Urine Microscopic? YES; Bacteria Urine Rare /hpf; RBC Urine None seen /hpf (0-2); Squamous Epithelial Cell Urine Few /hpf (Few); WBC Urine 0-3 /hpf (0-3)
[2023-06-10 11:21] LABS: Rheumatoid Factor Screen Negative (Negative)
[2023-06-10 11:23] LABS: Alanine Aminotransferase 27 U/L (14-59); Albumin Level 3.2 g/dL (3.4-5.0); Alkaline Phosphatase 88 U/L (46-116); Anion Gap 10 mmol/L (8-16); Aspartate Amino Transferase 31 U/L (15-37); Bilirubin,Total 0.4 mg/dL (0.00-1.00); Blood Urea Nitrogen 12 mg/dL (7-18); Calcium 9.3 mg/dL (8.5-10.1); Carbon Dioxide 25 mmol/L (21-32); Chloride 107 mmol/L (98-108); Estimated Glomerular Filt Rate > 60; Glucose 84 mg/dL (70-99); Osmolality Calculated 292 mOsm/kg (285-295); Potassium 4.9 mmol/L (3.5-5.1); Sodium 142 mmol/L (136-145); Total Protein 6.1 g/dL (6.4-8.2); Uric Acid 4.1 mg/dL (2.6-6.0)
[2023-06-10 11:26] LABS: CRP < 0.5 mg/dL (0.0-0.9)
[2023-06-10 11:57] LABS: Erythrocyte Sedimentation Rate 11 mm/hr (0-20)
[2023-06-13 22:21] LABS: Anti Cyclic Citrullinated Pept <16 Units (<20)
[2023-06-14 11:36] LABS: ANA Cascade Screen Negative (Negative)
== END 2023-06-10 10:35 | disposition home or self-care (01) ==
LOC: CHSLAB 10:36
PROVIDERS: PCP Family Medicine; Visit Provider Internal Medicine
DX: M35.9 Systemic involvement of connective tissue, unspecified (principal); M19.90 Unspecified osteoarthritis, unspecified site; Z87.39 Personal history of other diseases of the musculoskeletal system and connective tissue
CPT/HCPCS: 36415; 80053; 81001; 83520; 84550; 85027; 85652; 86038; 86140; 86200; 86430

== ENCOUNTER 2024-05-09 09:47 | Outpatient (CLI) | payer MEDICARE, MEDICAID, SELFPAY ==
[2024-05-09 10:14] LABS: Basophils Absolute Auto 0.04 K/mm3 (0.00-0.10); Eosinophils Absolute Auto 0.29 K/mm3 (0.02-0.50); Hematocrit 33.3 % (35.0-49.0); Hemoglobin 11.1 g/dL (12.0-15.0); Immature Granulocyte Absolute 0.01 K/mm3 (0.00-0.00); Immature Granulocyte Percent A 0.2 % (0.0-0.0); Lymphocytes Absolute Auto 0.92 K/mm3 (1.10-4.50); Lymphocytes Percent Auto 22.2 % (18.0-42.0); Mean Corpuscular HGB Conc 33.3 g/dL (32-36); Mean Corpuscular Volume 86.9 fL (78.0-102.0); Mean Platelet Volume 9.9 fl (9.2-11.8); Monocytes Absolute Auto 0.47 K/mm3 (0.10-0.90); Monocytes Percent Auto 11.4 % (2.0-11.0); Neutrophils Absolute Auto 2.41 K/mm3 (1.70-7.20); Neutrophils Percent Auto 58.2 % (50.0-70.0); Platelet Count Result 203 K/mm3 (150-420); Red Blood Count 3.83 M/mm3 (4.20-5.40); Red Cell Distribution Width 13.6 % (11.6-14.4); White Blood Count 4.1 K/mm3 (4.8-10.8)
[2024-05-09 10:18] LABS: Creatinine Urine 46.69 mg/dL (40-278); Total Protein Urine Random 18.7 mg/dL (0.0-11.9)
[2024-05-09 10:51] LABS: Alanine Aminotransferase 21 U/L (14-59); Albumin Level 3.4 g/dL (3.4-5.0); Alkaline Phosphatase 99 U/L (46-116); Anion Gap 1 mmol/L (4-12); Aspartate Amino Transferase 24 U/L (15-37); Bilirubin,Total 0.4 mg/dL (0.00-1.00); Blood Urea Nitrogen 7 mg/dL (7-18); Calcium 8.8 mg/dL (8.5-10.1); Carbon Dioxide 28 mmol/L (21-32); Chloride 98 mmol/L (98-108); Creatine Kinase 70 U/L (26-192); Estimated Glomerular Filt Rate > 60; Glucose 97 mg/dL (70-99); Osmolality Calculated 262 mOsm/kg (285-295); Potassium 4.1 mmol/L (3.5-5.1); Sodium 127 mmol/L (136-145); Total Protein 6.3 g/dL (6.4-8.2)
[2024-05-10 15:14] LABS: SM Antibody <1.0 NEG AI (<1.0 NEG); SM/RNP Antibody <1.0 NEG AI (<1.0 NEG)
[2024-05-10 16:33] LABS: Complement C3 90 mg/dL (83-193)
[2024-05-13 14:28] LABS: Aldolase 2.3 U/L (< OR = 8.1)
[2024-05-17 13:19] LABS: Anti Nuclear Antibody Pattern Nuclear, Nucleolar
== END 2024-05-09 09:48 | disposition home or self-care (01) ==
LOC: CHSLAB 09:52
PROVIDERS: PCP Family Medicine
DX: M32.9 Systemic lupus erythematosus, unspecified (principal); G93.9 Disorder of brain, unspecified
CPT/HCPCS: 36415; 80053; 82085; 82550; 82570; 84156; 85025; 86038; 86039; 86160; 86225; 86235

== ENCOUNTER 2024-09-10 09:53 | Outpatient (CLI) | payer MEDICARE, MEDICAID, SELFPAY ==
--- NOTE | ~2024-09-10 | MR_ITS ---
EXAMINATION: MR foot LT wo con DATE: 09/10/2024 10:51 INDICATION: Plantar plate rupture at the left foot TECHNIQUE: Magnetic resonance imaging (MRI) of the left fore/mid foot was performed without intraveno us contrast. Sequences included sagittal T1-weighted FSE, sagittal fluid sensitive FSE STIR, coronal PD-weighted FS FSE, coronal T1-weighted FSE, axial PD-weighted FS FSE, and axial PD-weighted FSE. COMPARISON: Left foot radiographs dated 09/13/2020 FINDINGS: Bone alignment is normal. Moderate to severe osteoarthritis with subarticular edema-like and cystlike changes at the talonavicular and second and third tarsal metatarsal joints with mild osteoarthritis at the fourth and fifth tarsal metatarsal joints and first metatarsophalangeal joint. The Lisfranc li gament complex along with the collateral ligament complexes at the metatarsal phalangeal and interpha langeal joints are normal. Visualized portion of the flexor and extensor tendons are normal. The plan tar plates at the distal insertions of the flexor tendons appear intact. Intrinsic musculature of the foreign midfoot appears unremarkable. No joint effusions or other abnormal fluid collections. IMPRESSION: 1. Polyarticular osteoarthritis, moderate to severe at the left mid foot. Reviewed, dictated and finalized at location B. ORATE SAFETY DIRECTOR
--- NOTE | ~2024-09-10 | MR_ITS ---
EXAMINATION: MR foot RT wo con DATE: 09/10/2024 10:51 INDICATION: Plantar plate rupture TECHNIQUE: Magnetic resonance imaging (MRI) of the right fore/mid foot was performed without intraven ous contrast. Sequences included sagittal T1-weighted FSE, sagittal fluid sensitive FSE STIR, coronal PD-weighted FS FSE, coronal T1-weighted FSE, axial PD-weighted FS FSE, and axial PD-weighted FSE. COMPARISON: None FINDINGS: Alignment is normal. No fracture or pathologic marrow replacing process. Postoperative change of prio r realignment osteotomy with metallic magnetic field artifact associated with a likely screw fixation at the neck of the first metatarsal. Moderate osteoarthritis at the first metatarsophalangeal joint with double line sign underlying the head of the first metatarsal consistent with osteonecrosis of th e assessment is limited by the magnetic field artifact. Attempted arthrodesis with dorsal plate and screw fixation across the central tarsal metatarsal joint s. The screws appear to extend between the base of the second and third metatarsals and the mid and l ateral cuneiforms however assessment is significantly more limited than with radiographs or CT. There is severe osteoarthritis at the second and third tarsal metatarsal joints which appear to remain unf used although again assessment is limited with MRI. Moderate osteoarthritis at the fourth tarsal meta tarsal joint with subarticular cystlike changes at both sides of the joint space. Additional tiny deg enerative subarticular cystlike change at the base of the fifth metatarsal with mild osteoarthritis a t the fifth metatarsophalangeal joint. Severe osteoarthritis with subarticular edema-like and cystlike changes at both sides of the medial n avicular cuneiform articulation. The Lisfranc ligament complex and the collateral ligament complex at the metatarsophalangeal and interphalangeal joints are normal. Visualized portion of the flexor and extensor tendons appear normal with intact plantar plates at the distal insertions of the flexor tend ons. 1.9 x 1.4 x 1.1 cm ganglion cyst arising from the dorsal aspect of the talonavicular joint. IMPRESSION: 1. Realignment osteotomy at the neck of the first metatarsal. 2. 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 3. Attempted midfoot arthrodesis the region of the second and third tarsal metatarsal joints with sev ere osteoarthritis at the joint spaces which appear to remain unfused. The fixation screws appear to extend between the bases of the metatarsals and between the mid and lateral cuneiform however assessm ent is significantly more limited than with plain radiographs or CT which would be recommended if thi s is of clinical concern. 4. Additional polyarticular osteoarthritis at multiple joints in the mid and forefoot as detailed abo ve. Reviewed, dictated and finalized at location B. RTISING SALES REPRESENTATIVE IMPRESSION: 1. Realignment osteotomy at the neck of the first metatarsal. 2. Moderate osteoarthritis at the first metatarsophalangeal joint with likely o steonecrosis underlying the head of the first metatarsal. 3. Attempted midfoot arthrodesis the region of the second and third tarsal meta tarsal joints with severe osteoarthritis at the joint spaces which appear to re main unfused. The fixation screws appear to extend between the bases of the met atarsals and between the mid and lateral cuneiform however assessment is signif icantly more limited than with plain radiographs or CT which would be recommend ed if this is of clinical concern. 4. Additional polyarticular osteoarthritis at multiple joints in the mid and fo refoot as detailed above.
== END 2024-09-10 09:54 | disposition home or self-care (01) ==
LOC: CHSIMG 09:55
PROVIDERS: PCP Family Medicine
DX: M77.41 Metatarsalgia, right foot (principal); M77.42 Metatarsalgia, left foot; M19.072 Primary osteoarthritis, left ankle and foot; M19.071 Primary osteoarthritis, right ankle and foot
CPT/HCPCS: 73718

== ENCOUNTER 2024-12-27 13:35 | Emergency (ER) | payer MEDICARE, MEDICAID, SELFPAY ==
[2024-12-27] VITALS (21 sets, daily range): BP systolic 112–142; BP diastolic 69–98; PULSE 75–87; RESP 12–21; TEMP 36.9; O2SAT 97–100
[2024-12-27 14:03] LABS: Add Urine Microscopic? YES; Appearance Urine Clear (Clear); Bilirubin Urine Negative (Negative); Blood Urine 1+ (Negative); Color Urine Yellow (Yellow); Glucose Urine UA Negative (Negative); Ketones Urine Negative (Negative); Leukocyte Esterase Ur Negative LEU/UL (Negative); Nitrate Urine Negative (Negative); Protein Urine Negative (Negative); Specific Grav Ur >= 1.030 (1.010-1.020); Urobilinogen Urine 0.2 mg/dL (0.2-1.0)
[2024-12-27 14:09] LABS: Bacteria Urine 2+ /hpf; RBC Urine 0-2 /hpf (0-2); Squamous Epithelial Cell Urine Few /hpf (Few); WBC Urine None seen /hpf (0-3)
[2024-12-27 14:11] LABS: Hematocrit 32.9 % (35.0-49.0); Hemoglobin 11.2 g/dL (12.0-15.0); Mean Corpuscular Hemoglobin 29.9 pg (27.0-31.0); Mean Corpuscular Volume 87.7 fL (78.0-102.0); Mean Platelet Volume 8.9 fl (9.2-11.8); Platelet Count Result 301 K/mm3 (150-420); Red Blood Count 3.75 M/mm3 (4.20-5.40); White Blood Count 3.8 K/mm3 (4.8-10.8)
--- NOTE | 2024-12-27 14:20 | PC.NURSE ---
patient refused IV, ERP aware. Patient given water to drink.
[2024-12-27 14:29] LABS: Alanine Aminotransferase 20 U/L (14-59); Albumin Level 2.8 g/dL (3.4-5.0); Alkaline Phosphatase 126 U/L (46-116); Anion Gap 8 mmol/L (4-12); Aspartate Amino Transferase 23 U/L (15-37); Band Neutrophils Percent 0 % (0-6); Bilirubin,Total 0.4 mg/dL (0.00-1.00); Blood Urea Nitrogen 7 mg/dL (7-18); Calcium 8.2 mg/dL (8.5-10.1); Carbon Dioxide 28 mmol/L (21-32); Chloride 92 mmol/L (98-108); Estimated CRCL calculation 64 ml/min; Estimated Glomerular Filt Rate > 60; Glucose 108 mg/dL (70-99); Lymphocytes Absolute Manual 0.68 K/mm3 (1.1-4.5); Lymphocytes Percent Manual 18 % (18-44); Monocytes Absolute Manual 0.45 K/mm3 (0.1-0.90); Monocytes Percent Manual 12 % (3-9); Neutrophils Absolute Manual 2.66 K/mm3 (1.7-7.2); Neutrophils Percent Manual 70 % (46-73); Osmolality Calculated 265 mOsm/kg (285-295); Potassium 4.1 mmol/L (3.5-5.1); Sodium 128 mmol/L (136-145); Total Cells Counted 100; Total Protein 6.4 g/dL (6.4-8.2)
[2024-12-27 14:30] LABS: Platelet Estimate Adequate (Adequate); Schistocytes None Seen
--- OUTSIDE RECORDS SUMMARY | 2024-12-27 14:33 | XMS_ITS | Clinical Summary ---
Author Organization [facility] Address [address] [place] [address] Care Team Providers Care Commercial Representative Name Role Phone Jose Cordoba MD Primary Care Provider Allergies No known active allergies Medications norethindrone-ethi nyl estradiol 1-20 MG-MCG tablet Take 1 tablet by mouth daily. Active albuterol sulfate HFA 108 (90 Base) MCG/ACT inhaler INHALE 1 PUFF BY MOUTH EVERY 4 HRS NEEDED 11/13/19 Active atorvastatin 10 MG tablet Take 1 tablet (10 mg total) by mouth daily. 11/15/19 Active diazePAM 5 MG tablet Take 1 tablet (5 mg total) by mouth 2 (two) times a day. 01/16/20 Active esomeprazole 40 MG capsule Take 1 capsule (40 mg total) by mouth every morning before breakfast. 12/10/19 Active BREO ELLIPTA 100-25 MCG/INH inhaler Inhale 1 puff into the lungs daily. 11/09/19 Active fluticasone propionate 50 MCG/ACT nasal spray SHAKE LIQUID AND USE 1 SPRAY IN EACH NOSTRIL EVERY DAY 11/09/19 Active hydroxychloroquine 200 MG tablet Take 1 tablet (200 mg total) by mouth 2 (two) times daily. 11/30/19 Active levothyroxine 50 MCG tablet Take 1.5 tablets (75 mcg total) by mouth every morning. 11/30/19 Active MYRBETRIQ 25 MG 24 hr tablet Take 1 tablet (25 mg total) by mouth daily. for 30 days 11/08/19 Active mirtazapine 45 MG tablet Take 1 tablet (45 mg total) by mouth nightly at bedtime. at bedtime. 11/10/19 Active oxybutynin XL 10 MG 24 hr tablet Take 1 tablet (10 mg total) by mouth daily. 10/21/19 Active pantoprazole EC 40 MG tablet Take 1 tablet (40 mg total) by mouth 2 (two) times daily. 08/23/20 Active prazosin 5 MG capsule Take 1 capsule (5 mg total) by mouth nightly at bedtime. 11/10/19 Active ziprasidone 80 MG capsule Take 1 capsule (80 mg total) by mouth daily with breakfast. 11/08/19 Active diclofenac EC 50 MG tablet Take 1 tablet (50 mg total) by mouth 2 (two) times daily. Active buprenorphine [address] 1 tablet (2 mg total) under the tongue 2 (two) times a day. Active promethazine 25 MG tablet Take 1 tablet (25 mg total) by mouth 3 (three) times a day. Active diclofenac potassium 50 MG tablet 01/28/20 Active methocarbamol 750 MG Tab Take 1 tablet (750 mg total) by mouth 3 (three) times daily as needed. 01/04/20 Active propranolol 20 MG tablet Take 2 tablets (40 mg total) by mouth daily. Active SUMAtriptan (IMITREX) 25 MG tablet Take 1 tablet (25 mg total) by mouth 2 (two) times daily as needed for Migraine. Max of 8 tablets (200 mg) in a 24 hour period. 9 tablet 11/02/19 24 Active venlafaxine XR (EFFEXOR-XR) 150 MG 24 hr capsule Take 1 capsule (150 mg total) by mouth daily. Active venlafaxine XR (EFFEXOR-XR) 75 MG 24 hr capsule Take 1 capsule (75 mg total) by mouth daily. Active amitriptyline (ELAVIL) 25 MG tablet Take 1 tablet (25 mg total) by mouth nightly at bedtime. 11/30/19 24 Active aspirin EC (ECOTRIN) 81 MG tablet Take 1 tablet (81 mg total) by mouth daily. Active carBAMazepine XR (TEGRETOL XR) 100 MG 12 hr tablet Take 1 tablet (100 mg total) by mouth 2 (two) times daily. 12/07/19 24 Active diphenhydrAMINE (BENADRYL) 50 MG Cap capsule Take 25 mg by mouth once. 12/11/19 24 Active ondansetron (ZOFRAN-ODT) 4 MG disintegrating tablet Take 1 tablet (4 mg total) by mouth every 8 (eight) hours as needed for Nausea. Active meclizine (ANTIVERT) 25 MG tablet Take 1 tablet (25 mg total) by mouth 3 (three) times daily as needed. Active HYDROcodone-acetam inophen (NORCO) 5-325 MG tabletIndications: Acute Pain < 7 Day Supply Take 1-2 tablets by mouth every 4 (four) hours as needed for Pain. Indications: Acute Pain < 7 Day Supply For Moderate Pain 20 tablet 10/04/19 Active naloxone (NARCAN) 4 MG/0.1ML nasal spray 1 spray by Nasal route as needed for Opioid reversal. may repeat every 2 to 3 minutes in alternating nostrils until medical assistance becomes available 1 each 10/04/19 25 026 Active oxyCODONE-acetamin ophen (PERCOCET) 5-325 MG tabletIndications: Acute Pain < 7 Day Supply Take 1-2 tablets by mouth every 4 (four) hours as needed for Pain. Indications: Acute Pain < 7 Day Supply For Severe Pain 20 tablet 12/14/19 Active Encounters Date Type Department Care Team Description 12/13/2024 8:34 AM CDT Anesthesia Event [facility] [address] [place] [address] Yajaira Fu, Nick Brown CRNA 12/13/2024 8:13 AM CDT - 12/13/2024 8:56 AM CDT Surgery [facility] [address] [place] [address] Li Rodas DPM Removal of Hardware Left Foot 12/13/2024 7:02 AM CDT - 12/13/2024 10:15 AM CDT Hospital Encounter [facility] [address] [place] [address] Li Rodas DPM Discharge Disposition: Home or Self Care (Routine Discharge) 12/13/2024 Travel 12/06/2024 Telephone [facility] [address] [place] [address] Bettie Hung, torsion spring coiling machine setter (Patient requested to reschedule procedure due to being on abx currently for a UTI) 10/04/2024 7:53 AM SNOW TECHNICIAN Anesthesia Event [facility] [address] [place] [id number] Yajaira Fu, Nick Brown CRNA 10/04/2024 7:30 AM SNOW TECHNICIAN - 10/04/2024 9:44 AM SNOW TECHNICIAN Surgery [facility] [address] [place] [id number] Li Rodas DPM Go Osteotomy Second Metatarsal 10/04/2024 5:55 AM SNOW TECHNICIAN - 10/04/2024 4:00 PM SNOW TECHNICIAN Hospital Encounter [facility] [address] [place] [id number] Li Rodas DPM Discharge Disposition: Home or Self Care (Routine Discharge) 10/04/2024 Travel 09/30/2024 Telephone [facility] [address] [place] [id number] Bettie Hung, torsion spring coiling machine setter from Last 3 Months Family History Medical History Relation Comments Heart Disease Father No Known Problems Mother Relation Status Comments Father Mother Alive Social History Tobacco Use Types Packs/Day Years Used Date Smoking Tobacco: Never Smokeless Tobacco: Never Tobacco Cessation:Counseling Given: Not Answered Alcohol Use Standard Drinks/Week Comments Yes 0 (1 standard drink = 0.6 oz pur e alcohol) rarely Comments No Sex and Gender Information Value Date Recorded Sex Assigned at Female 09/27/2024 10:44 AM SNOW TECHNICIAN Legal Sex Female 1:12 PM CDT Gender Identity Not on file Sexual Orientation Not on file Last Filed Vital Signs Vital Sign Reading Time Taken Comments Blood Pressure 114/70 12/13/2024 10:10 AM CDT Pulse 71 12/13/2024 10:10 AM CDT Temperature 36.3 C (97.3 F) 12/13/2024 10:10 AM CDT Respiratory Rate 16 12/13/2024 10:10 AM CDT Oxygen Saturation 100% 12/13/2024 10:10 AM CDT Inhaled Oxygen Concentration - - Weight 73.9 kg (163 lb) 12/13/2024 7:27 AM CDT Height 154.9 cm (5' 1 ) 12/13/2024 7:27 AM CDT Body Mass Index 30.8 12/13/2024 7:27 AM CDT Plan of Treatment Health Maintenance Due Date Last Done Comments Cervical Cancer Screening Pa p Smear (Age 30 to 64) Every 3 Years 1970 Colorectal Cancer Screening Colonoscopy (10 Years) 1970 Annual Physical 1973 Hepatitis C 1988 Hepatitis B Vaccines (1 of 3 - 19+ 3-dose series) 1989 Cervical Cancer Screening Pa p with HPV Testing (Age 30 to 64) Every 5 Years 2000 Cervical Cancer Screening wi th HPV 2000 Mammogram Screening 2010 Zoster Vaccines (2 of 2) 11/06/2020 09/11/2020 COVID-19 Vaccine (3 - 2023-2 5 season) 2024 06/09/2021, 05/11/2021 PHQ-2 (Physician [place]) 09/14/2024 DTaP, Tdap and Td Vaccines ( 2 - Td or Tdap) 11/08/2030 11/08/2020 Meningococcal B Vaccine Aged Out No l onger eligible based on patient's age to complete this topic Meningococcal Vaccine Aged Out No warren [place] eligible based on patient's age to complete this topic Pneumococcal Vaccine: Pediatrics (0 to 5 Years) and At-Risk Patients (6 to 49 Years) Aged Out No longer eligible b ased on patient's age to complete this topic RSV Immunizations Under 20 Months Aged Out No longer eligible b ased on patient's age to complete this topic Medical Devices Implanted Type Area Rescue Worker Device Identifier Shelf Expiration Date Model / Serial / Lot Smart Toe Ii Intramedullary Arthrodesis Implant Implanted:Qty: 1 on 10/04/2024 by Li Rodas DPM at [facility] Left: Foot [employer]OSH[employer] 06/13/2028 [id number] / / [id number] 2.0 X 12 Snap Off Screw Implanted:Qty: 2 on 10/04/2024 by Li Rodas DPM at [facility] Left: Foot [employer] [id number] / / Viaflow Flowable Placental Tissue Matrix Implanted:Qty: 1 on 10/04/2024 by Li Rodas DPM at [facility] Left: Foot 02/21/2029 [id number] / / [employer] Flowable Placental Tissue Matrix Implanted:Qty: 1 on 12/13/2024 by Li Rodas DPM at [facility] [employer] 02/21/2029 [id number] / [id number] / Procedures Procedure Name Priority Date/Time Associated Diagnosis Comments REMOVAL HARDWARE 12/13/2024 8:32 AM CDT T84.84XA Case Notes Mini C-Arm and [employer] Smart Toe Implant RemovalC CORRJ HALUX RIGDUS W/IMPLT 10/04/2024 7:55 AM SNOW TECHNICIAN M77.42; M20.42 Case Notes [employer]well [employer] and Snap Off ScrewsSmart Toe ImplantC REPAIR OF HAMMERTOE,ONE 10/04/2024 7:55 AM SNOW TECHNICIAN M77.42; M20.42 Case Notes Danielle [employer] and Snap Off ScrewsSmart Toe ImplantC OSTEOTOMY METATARSAL 10/04/2024 7:55 AM SNOW TECHNICIAN M77.42; M20.42 Case Notes Taswell [employer] and Snap Off ScrewsSmart Toe ImplantC from Last 3 Months Additional Health Concerns Infection Onset 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
--- OUTSIDE RECORDS SUMMARY | 2024-12-27 14:33 | XMS_ITS | Data Portability ---
Author Organization [facility], [address] [place] [address] Neurology ([place]) Address [address] [place] [address] Care Team Providers Care Landscape Maintenance Internship Name Role Phone NADINE MELO Primary Care Provider [phone] Assessment Encounter Date Assessment Date Assessment LastModified by Organization Details LastModified Time 08/22/2024 08/22/2024 Assessment and Plan: The patient has a lesion on the right medial cheek and lateral nasal wall junction. It could potentially be a verrucous vulgaris but could be another lesion as well. She does not want to try topical medicine and would like to have it excised. I discussed she will have a scar as a tradeoff. Risks were discussed including bleeding, infection, wounds, scarring, injury to surrounding structures, and need for additional surgery. We will send it to pathology and do it as an office based procedure. History of Present Illness: The patient is a 54-year-old female who comes in today for evaluation of a lesion on the right side of her medial cheek and lateral nasal wall junction. She has had it for a month. She says it has grown, itches and bleeds. Physical Examination: CONST: Patient is in no apparent distress. HEENT: The patient has a round raised red lesion with a little bit of hyperkeratotic tissue at the base in a verrucous pattern. There are no other lesions in the area. RESP: Breathing appears normal. No use of accessory muscles. GI: Abdomen nondistended. MSK: Extremities appear normal. SKIN: No cyanosis. PSYCH: Stable mood and affect. NEURO: No speech difficulty. Reviewed pertinent diagnostic tests, lab work, and imaging. These were reviewed with the patient. Review of Systems: Patient history from today's date has been reviewed, signed and scanned. All updates have been added to the chart. Please refer to this form for review of the past medical history, family history, surgical history, social history, and review of systems. saw swoelfel Not available 08/23/2024 06:17:02 Plan of Treatment Reminders Order Date Submit Date Provider Last Modified By Organization Details Last Modified Time Details Appointments None record ed. Lab None record ed. Referral None record ed. Procedures None record ed. Surgeries None record ed. Imaging None record ed. Medication Orders None record ed. Patient TargetsNo targets recorded. Patient InstructionsNo instructions recorded. Reason for Referral None Reported. Problems Name Problem SNOMED Code Status Onset Date Resolution Date Notes Provider Name and Address Organization Details Recorded Time Neoplasm of uncertain behavior of skin 42775149 Active 024 Wu Morales MD [facility] [place] [address], [id number] , [facility] 16:08:52 Problem Notes None recorded. Medical Equipment None Reported. Allergies Allergen ID Allergen Name Allergen Category Reaction Reaction Severity Criticality Documentation Date Start Date Code Code System Note Provider Name and Address Organization Details Recorded Time 8464006 Iodinated contrast media (substanc e) medicatio n Not available Not available Not available 10/14/20232021 34565 2003 SNOMED React ion: Fever ; Vomit ing; Not Available Not Available Not Available Medications Name Sig Start Date Stop Date Status Note LastModified by Organization Details LastModified Time atorvastatin 10 mg tablet TAKE 1 TABLET BY MOUTH DAILY FOR CHOLESTEROL active Not Available Not Available Not Available Vitals None Recorded Social History None recorded. Functional Status None recorded. Mental Status None recorded. Family History Nothing Reported. Medical History No medical history recorded. Gynecological HistoryNo gynecological history recorded. Obstetrics History GPAL:G 0 P 0 0 0 0 Past Encounters Encounter ID Performer Location Encounter Start Date Encounter Closed Date Diagnosis/Indication Diagnosis SNOMED-CT Code Diagnosis ICD10 Code Diagnosis Note [id number] Wu Morales MD [facility] [address] [place] [address] 08/22/2024 15:27:54 08/22/2024 16:07:25 Neoplasm of uncertain behavior of skin 86343026 D48.5 Health Concerns Section Related Observation LastModified by Organization Detai ls LastModified Time None Recorded Concern Status LastModified by Organization Details LastModified Time None Recorded Advance Directives Directive None Recorded Payers Encounter Date Sequence Insurance Name Policy Number Policy [place] Covered Member ID [place] Member ID Guarantor Name 08/22/2024 1 [facility] (MEDICARE REPLACEMENT/AD VANTAGE - PPO) [id number] Mary Beth Egan [id number] Mary Beth Egan 08/22/2024 2 [facility] (MEDICAID REPLACEMENT - HMO) [id number] Mary Beth Egan [id number] Mary Beth Egan OBGyn Episode No OBEpisode recorded.
--- OUTSIDE RECORDS SUMMARY | 2024-12-27 14:33 | XMS_ITS | CONTINUITY OF CARE DOCUMENT ---
Author Name fei enamorado Address Unknown Organization [facility] Address [address] [place] [address] Phone [phone] Care Team Providers Care Human Resources Training Manager Name Role Phone Trevor Dyson MD Unavailable [phone] CARLOS DENIS, AKSHAT Unavailable [phone] INSURANCE PROVIDERS Payer name Policy type / Coverage type Joe red republican ID [employer] Medicaid 1 [id number] [facility] [id number]
--- OUTSIDE RECORDS SUMMARY | 2024-12-27 14:33 | XMS_ITS | Clinical Summary ---
Author Organization [facility] [address] [facility] tt Address [address] [place] [address] Care Team Providers Care Process Improvement Manager Name Role Phone Jose Cordoba MD Primary Care Provider [phone] Allergies No known active allergies Medications atorvastatin (LIPITOR) 10 mg tabletIndications: hyperlipidemia Take 1 tablet (10 mg total) by mouth daily before breakfast 2 06/09/20 Active MYRBETRIQ 25 mg tablet extended release 24 hrIndications:Urin michael Urgency Take 1 tablet (25 mg total) by mouth daily before breakfast 6 08/10/20 Active mirtazapine (REMERON) 45 mg tabletIndications: Insomnia Take 1 tablet (45 mg total) by mouth nightly 0 08/02/20 Active oxybutynin XL (DITROPAN-XL) 10 mg 24 hr tabletIndications: Urinary Urge Incontinence Take 1 tablet (10 mg total) by mouth daily before breakfast 3 06/08/20 Active prazosin (MINIPRESS) 2 mg capsuleIndications :Post Traumatic Stress Disorder Take 1 capsule (2 mg total) by mouth nightly Total of 7mg nightly 1 08/01/20 Active multivitamin capsuleIndications :Vitamin Deficiency Prevention Take 1 capsule by mouth daily before breakfast Active APPLE CIDER VINEGAR ORALIndications:talavera pplement Take 450 mg by mouth as needed Active cyanocobalamin (Vitamin B-12) 500 mcg tabletIndications: Prevention of Vitamin B12 Deficiency Take 1 tablet (500 mcg total) by mouth as needed Active Narcan 4 mg/actuation spray,non-aerosol MARIO REP ALN 08/31/20 Active aspirin 81 mg enteric coated tabletIndications: prevention of thrombosis, Stroke prevention Take 1 tablet (81 mg total) by mouth every morning Active propranoloL (INDERAL) 40 mg tabletIndications: Essential Tremor Take 1 tablet (40 mg total) by mouth every morning 02/17/20 Active ondansetron ODT (ZOFRAN-ODT) 4 mg disintegrating tablet Take 1 tablet (4 mg total) by mouth every 6 (six) hours as needed for vomiting or nausea 12/29/19 20 Active lidocaine (XYLOCAINE) 5 % ointment Apply 1 Application topically as needed for pain 02/10/20 20 Active albuterol HFA (PROVENTIL HFA,VENTOLIN HFA,PROAIR HFA) 90 mcg/actuation inhaler Inhale 2 puffs every 4 (four) hours as needed for shortness of breath or wheezing 11/13/19 22 Active amitriptyline (ELAVIL) 25 mg tabletIndications: depression Take 1 tablet (25 mg total) by mouth nightly 11/30/19 24 Active buprenorphine (SUBUTEX) 2 mg tablet, sublingualIndicati ons:Opioid Withdrawal Symptoms,to get off pain meds Place 2 tablets (4 mg total) under the tongue every morning Active diazePAM (VALIUM) 2 mg tablet Take 1.5 tablets (3 mg total) by mouth every 12 (twelve) hours as needed for anxiety 12/02/[address] (NexIUM) 40 mg capsuleIndications :Stress Ulcer Prophylaxis Take 1 capsule (40 mg total) by mouth every morning 12/10/19 22 Active fluticasone propionate (FLONASE) 50 mcg/actuation nasal spray Administer 1 spray into each nostril daily as needed for allergies 11/09/19 22 Active methocarbamoL (ROBAXIN) 750 mg tabletIndications: Muscle Spasm Take 1 tablet (750 mg total) by mouth 2 (two) times a day 01/04/20 22 Active SUMAtriptan (IMITREX) 25 mg tablet Take 1 tablet (25 mg total) by mouth 2 (two) times a day as needed for migraine 11/02/19 24 Active venlafaxine XR (EFFEXOR-XR) 150 mg 24 hr capsuleIndications :Anxiety with Depression Take 1 capsule (150 mg total) by mouth every morning 11/19/19 24 Active venlafaxine XR (EFFEXOR-XR) 75 mg 24 hr capsuleIndications :Anxiety with Depression Take 1 capsule (75 mg total) by mouth every morning 09/16/19 24 Active diphenhydrAMINE (BENADRYL) 50 mg capsule Take one capsule 1 hour before scan 1 capsule 12/11/19 24 Active Additional Information Patient taking differently: As needed, Take one capsule 1 hour before scan, Reported on 05/04/2024 ziprasidone (GEODON) 80 mg capsuleIndications :Depression Treatment Adjunct Take 1 capsule (80 mg total) by mouth nightly Active cetirizine (ZyrTEC) 10 mg tabletIndications: Seasonal Allergic Rhinitis Take 1 tablet (10 mg total) by mouth daily as needed for allergies Active meclizine (ANTIVERT) 25 mg tablet Take 1 tablet (25 mg total) by mouth 3 (three) times a day as needed for dizziness or nausea Active prazosin (MINIPRESS) 5 mg capsuleIndications :Post Traumatic Stress Disorder Take 1 capsule (5 mg total) by mouth nightly Total of 7mg Active carBAMazepine XR (TEGretol XR) 100 mg 12 hr tablet Take 1 tablet QAM and 2 tablets QHS 90 tablet 11 01/19/20 24 Active hydroCHLOROthiazid e (MICROZIDE) 12.5 mg capsule Take 1 capsule (12.5 mg total) by mouth daily Active levothyroxine (SYNTHROID) 75 mcg tablet 1 tablet (75 mcg total) 04/19/20 24 Active norethindrone-e.es tradioL-iron (JUNEL FE 10/03) 1 mg-20 mcg (21)/75 mg (7) per tablet 03/10/20 24 Active rizatriptan (MAXALT) 10 mg tablet 1 tablet (10 mg total) 03/09/20 24 Active hydroxychloroquine (PLAQUENIL) 200 mg tabletIndications: Systemic Lupus Erythematosus Take 1 tab by mouth every other day alternating with 2 tabs on the other days. Ex: mon-1 tab, tu-2 tabs, wed 1 tab and so on. 135 tablet 1 05/04/20 24 Active Active Problems Problem Noted Date Diagnosed Date Hypothyroidism 01/11/2024 Systemic lupus erythematosus 01/06/2024 Swallowing painful 01/06/2024 Sciatic nerve lesion 01/06/2024 Menopausal symptom 01/06/2024 Major depression, single episode 01/06/2024 Irritable bowel syndrome with diarrhea Hyperlipidemia 01/06/2024 Gout 01/06/2024 Generalized anxiety disorder 01/06/2024 Essential hypertension 01/06/2024 Alcohol abuse 01/06/2024 Adjustment disorder with depressed mood 01/06/20 Attention deficit disorder 01/06/2024 Brain lesion 12/08/2023 Displaced SHONNA subtalar implant 07/23/2021 Overview (07/23/2021): Added automatically from request for surgery [id number] Allergic arthritis of ankle, right 11/06/2020 Overview (11/06/2020): Added automatically from request for surgery [id number] Acquired hallux valgus of right foot 11/06/2020 Overview (11/06/2020): Added automatically from request for surgery [id number] Essential tremor 08/22/2020 Memory loss 08/22/2020 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 Overview (09/20/2019): Added automatically from request for surgery [id number] Deviated nasal septum 09/20/2019 Overview (09/20/2019): Added automatically from request for surgery [id number] Closed fracture of nasal bones 09/20/2019 Overview (09/20/2019): Added automatically from request for surgery [id number] Acquired deformity of nose 09/20/2019 Overview (09/20/2019): Added automatically from request for surgery [id number] Pain in left wrist 08/24/2015 Knee pain 10/10/2014 Blood in urine 05/23/2013 Abdominal pain 03/29/2013 Otalgia 03/04/2013 Low back pain 02/18/2013 Neck pain 11/09/2012 Vitamin D deficiency 11/09/2012 Tremor 10/12/2012 Viral disease 09/10/2012 Nausea 07/16/2012 Acquired hypothyroidism 06/18/2012 Gastroesophageal reflux disease 06/18/2012 Chronic pain 06/18/2012 Immunizations Immunization Administration Dates Next Due Influenza, Trivalent, IM (MDV) 07/04/2020 ZOSTER Recombinant 09/11/2020 Surgical History Surgery Date Site/Laterality Comments GASTRIC BYPASS 09/14/2009 - 09/13/2010 SECTION 09/14/1998 - 09/13/1999 LITHOTRIPSY 2009's DILATION AND CURETTAGE OF UTERUS 09/14/1997 - 09/13/1998 RHINOPLASTY 09/14/2019 - 09/13/2020 CHOLECYSTECTOMY 09/14/2022 - 09/13/2023 FOOT SURGERY 09/14/2020 - 09/13/2021 Left PERCUTANEOUS NEEDLE BIOPSY MUSCLE 01/25/2024 N/A Medical History Medical History Date Comments Hypothyroidism HLD (hyperlipidemia) Stroke (HCC) pt states scan s howed possible stroke in past Tremors of nervous system Weakness of limb Numbness Difficulty walking Memory loss Brain tumor (benign) (HCC) Kidney infection Osteoarthritis Family History Medical History Relation Name Comments Alcohol abuse Father Family history of alcoholism - (Added by TW Conv) Heart disease Father Family history of cardiac disorder - (Added by TW Conv) Hypertension Father Family history of hypertension - (Added by TW Conv) Mental illness Father FH: mental il lness - (Added by TW Conv) Alcohol abuse Mother Family history of alcoholism - (Added by TW Conv) Arthritis Mother Family history of arthritis - (Added by TW Conv) Mental illness Mother FH: mental il lness - (Added by TW Conv) Relation Name Status Comments Father Mother Social History Tobacco Use Types Packs/Day Years Used Date Smoking Tobacco: Never Smokeless Tobacco: Never Tobacco Cessation:Counseling Given: Not Answered Alcohol Use Standard Drinks/Week Comments Not Currently 0 (1 standard drink = 0.6 oz pur e alcohol) AUDIT-C Answer Date Recorded Q1: How often do you have a drink containing alc ohol? 2-3 times a week 01/25/2024 Q2: How many drinks containi ng alcohol do you have on a typical day when you are drinking? 3 or 4 01/25/2024 Q3: How often do you have si x or more drinks on one occasion? Monthly 01/25/2024 Personal Safety Answer Date Recorded Have you ever been in or are you currently in a harmful physical or emotional relationship or is someone making you feel afraid or unsafe? 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 Obstetrics History Last Filed Vital Signs Vital Sign Reading Time Taken Comments Blood Pressure 115/75 05/04/2024 10:47 AM CDT Pulse 58 05/04/2024 10:47 AM CDT Temperature 36.1 C (97 F) 01/25/2024 9:00 AM CDT Respiratory Rate 17 01/25/2024 9:30 AM CDT Oxygen Saturation 100% 05/04/2024 10: 47 AM CDT Inhaled Oxygen Concentration - - Weight 68.4 kg (150 lb 12.8 oz) 024 10:47 AM CDT Height 154.9 cm (5' 1 ) 05/04/2024 10:4 7 AM CDT Body Mass Index 28.49 05/04/2024 10:47 AM CDT Plan of Treatment Scheduled Procedures Name Priority Associated Diagnoses Date/Ti me COLONOSCOPY Irritable bowel syndrome with diarrhea Swallowing painful ESOPHAGOGASTRODUODENOSCOPY Irritable bowel syndrome with diarrhea Swallowing painful Health Maintenance Due Date Last Done Comments Breast Cancer Screening-Mammogram 1970 Cervical Cancer Screening 1970 Colon Cancer Screening-Colonoscopy 1970 Depression Screening 1970 Hepatitis C Screening 1970 DTaP/Tdap/Td Vaccine (1 - Tdap) 1981 Hepatitis B Screening 1988 Regular Well Visit/Exam 18-64 1988 Pneumococcal vaccine <65 (1 of 2 - PCV) 1989 Influenza Vaccine (Season Ended) 2025 07/04/20 20 Zoster Vaccine Completed 11/19/2020, 10/15, 09/11/2020 [facility] IDPA [facility] MEDICARE ADVANTAGE IDPA [facility] MEDICARE ADVANTAGE IDPA Care Teams Process Improvement Manager Relationship Specialty Start Date End Date Jose Cordoba MD [address] [place] [address] [place] [address] PCP - General Family Medicine 12/08/23
--- OUTSIDE RECORDS SUMMARY | 2024-12-27 14:33 | XMS_ITS | Referral Summary ---
Author Organization [facility] [address] [facility] tt Address [address] [place] [address] Care Team Providers Care Research Scientist Name Role Phone Jose Cordoba MD Primary Care Provider [phone] Allergies No known active allergies Medications atorvastatin (LIPITOR) 10 mg tabletIndications: hyperlipidemia Take 1 tablet (10 mg total) by mouth daily before breakfast 2 06/09/20 Active MYRBETRIQ 25 mg tablet extended release 24 hrIndications:Urin michale Urgency Take 1 tablet (25 mg total) [...] (07/23/2021): Added automatically from request for surgery [id number] Allergic arthritis of ankle, right 11/06/2020 Overview (11/06/2020): Added automatically from request for surgery [id number] Acquired hallux valgus of right foot 11/06/2020 Overview (11/06/2020): Added automatically from request for surgery [id number] Essential tremor 08/22/2020 Memory loss 08/22/2020 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 Overview (09/20/2019): Added automatically from request for surgery [id number] Deviated nasal septum 09/20/2019 Overview (09/20/2019): Added automatically from request for surgery [id number] Closed fracture of nasal bones 09/20/2019 Overview (09/20/2019): Added automatically from request for surgery [id number] Acquired deformity of nose 09/20/2019 Overview (09/20/2019): Added automatically from request for surgery [id number] Pain in left wrist 08/24/2015 Knee pain 10/10/2014 Blood in urine 05/23/2013 Abdominal pain 03/29/2013 Otalgia 03/04/2013 Low back pain 02/18/2013 Neck pain 11/09/2012 Vitamin D deficiency 11/09/2012 Tremor 10/12/2012 Viral disease 09/10/2012 Nausea 07/16/2012 Acquired hypothyroidism 06/18/2012 Gastroesophageal reflux disease 06/18/2012 Chronic pain 06/18/2012 Immunizations Immunization Administration Dates Next Due Influenza, Trivalent, IM (MDV) 07/04/2020 ZOSTER Recombinant 09/11/2020 Social History Tobacco Use Types Packs/Day Years [...] on file 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 Gender Identity Not on file Sexual Orientation Straight 10/09/2020 12 :07 PM 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 Last Filed Vital Signs Vital Sign Reading [...] Scheduled Procedures Name Priority Associated Diagnoses Date/Ti nm COLONOSCOPY Irritable bowel syndrome with diarrhea Swallowing painful ESOPHAGOGASTRODUODENOSCOPY Irritable bowel syndrome with diarrhea Swallowing painful Insurance [facility] MDCR HMO REF [facility] MEDICARE Address: [address] [address] [place] [address] IDPA [facility] MEDICARE ADVANTAGE [facility] MEDICARE Address: [address] [address] [place] [address] IDPA [facility] MEDICARE ADVANTAGE [facility]ARE Address: [facility] [address] [place] [address] IDPA Care Teams Research Scientist Relationship Specialty Start Date End Date Jose Cordoba MD [address] [facility] [place] [address] PCP - General Family Medicine 12/08/23
--- OUTSIDE RECORDS SUMMARY | 2024-12-27 14:34 | XMS_ITS | Patient Health Record ---
Author Organization [facility], [facility] Address [address] [place] [address] Care Team Providers Care Weigher Bulker Name Role Phone Cliff Medina Primary Care Provider Allergies Allergen (clinical drug ingredient) Drug/Non Drug Allergy documented on EMR Reaction Allergy Type Onset Date Status IV dye (uncoded) vomiting Allergy Act jil Reason For Referral No Information Medications Medication SIG (Take, Route, Frequency, Duration) Notes Start Date End Date Status Gabapentin 600 MG TAKE 1 TABELT BY MOUTH 3 TIMES DAILY 30 for 30 Active Potassium Chloride ER 20 MEQ 1 tablet with food Orally Twice a day for 90 day(s) Active Myrbetriq 25 MG 1 tablet Orally Once a day for 30 days Active Atorvastatin Calcium 10 MG TAKE 1 TABLET BY MOUTH EVERY DAY for 90 Active Ziprasidone HCl 80 MG 1 capsule with araceli d Orally Once a day at bedtime Active Nortriptyline HCl 50 MG 2 capsules Orall y at bedtime for 30 days Active Levothyroxine Sodium 50 MCG TAKE ONE TABLET BY MOUTH DAILY Orally Once a day for 30 day(s) Active Allopurinol 100 MG TAKE 1 TABLET BY MOUTH EVERY DAY Orally Once a day for 30 day(s) Active Pantoprazole Sodium 40 MG 1 tablet Orall y Twice a day for 30 days Active Vitamin D (Ergocalciferol) 1.25 MG (85779 UT) 1 capsule Orally Once a week for 90 days Active Flonase Active Hydroxychloroquine Sulfate 200 MG 1 tablet Orally Twice a day Active Methocarbamol 500 MG 1 tablet Orally every 4 hrs Active oxyCODONE-Acetaminophen 7.5-325 MG 1 tablet as needed Orally every 6 hrs Active Ondansetron 4 MG 1 tablet on the tongue and allow to dissolve as needed Oral Twice a day for 30 day(s) Active FLUoxetine HCl 20 MG 3 capsule Orally Once a day Active Blisovi Fe 1.530 1.5-30 MG-MCG Oral for 84 Active Prazosin HCl 5 MG 1 capsule at bedtime Orally Once a day Active oxyBUTYnin Chloride ER 10 MG 1 tablet Orally Once a day Active Lidocaine 4 % 1 application as needed Externally Three times a day for 30 days to neck and lower back 12/23/2019 Active Mirtazapine 45 MG TAKE ONE TABLET BY MOUTH EVERY NIGHT AT BEDTIME for 30 Active diazePAM 5 MG 1 tablet as needed Orally Twice a day. Needs appointment before next refill. for 30 days 08/15/2021 Active Propranolol HCl 40 MG TAKE 1 TABLET BY MOUTH TWICE DAILY for 90 Active Lidocaine 5 % APPLY TO TO THE AFFECTED AREA(S) THREE TIMES DAILY NEEDED for 30 Active Albuterol Sulfate HFA 108 (90 Base) MCG/ACT 1 puff as needed Inhalation every 4 hrs for 30 days 02/01/2021 Active Breo Ellipta 100-25 MCG/INH INHALE 1 PUFF BY MOUTH EVERY DAY 30 for 30 Active Spironolactone 25 MG 1 tablet Orally Once a day for 90 days Active Fluticasone Propionate 50 MCG/ACT 1 spray in each nostril Nasally Once a day for 30 day(s) 03/15/2021 Active Immunizations Vaccine Route Administration Date Status Comme nts Herpes Zoster (Shingrix) IM Intramuscular 10/31/2020 Admin istered [facility], Herpes Zoster (Shingrix) IM Intramuscular 11/19/2020 Admin istered Flulaval IM Intramuscular 07/04/2020 Administered Social History Tobacco Use: Social History Observation Description Date Details (start date - stop date) Never Smoker NA - NA Sex Assigned At : Social History Observation Description Sex Assigned At Female Tobacco Use/Smoking Question Answer Notes Smoking Status: nonsmoker Alcohol Screen (Audit-C) Question Answer Notes Did you have a drink contain ing alcohol in the past year? Yes How often did you have a dri nk containing alcohol in the past year? 2 to 4 times a month (2 points) How many drinks did you have on a typical day when you were drinking in the past year? 1 or 2 drinks (0 point) How often did you have 6 or more drinks on one occasion in the past year? Less than monthly (1 point) Points 3 Interpretation Positive Sexual History Question Answer Notes Had sex in the past 12 months (vaginal, oral, or anal)? Yes with Men only Use protection? No Have you ever had a Sexually transmitted disease ? 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 Problem Irritable bowel syndrome with diarrhea (599538785) Irritable bowel syndrome with diarrhea (K58.0) Active confirmed Problem Essential hypertension (88833581) Essential hypertension (I10) Active confirmed Problem Alcohol abuse (17740832) Alcohol abuse (F10.10) Active confirmed Problem Vitamin D deficiency (08039175) Vitamin D deficiency (E55.9) Active confirmed Problem Gout (55731468) Gout (M10.9) Active confirmed Problem Memory loss (89042748) Memory loss (R41.3) Active confirmed Problem Attention deficit disorder (13807806) ADD (attention deficit disorder) (F90.0) Active confirmed Problem Irritable bowel syndrome (06420453) Irritable bowel syndrome (IBS) (K58.9) Active confirmed Problem Hyperlipidemia (09774644) Hyperlipidemia (E78.5) Active confirmed Problem Generalized anxiety disorder (12067245) PETER (generalized anxiety disorder) (F41.1) Active confirmed Problem Hypothyroidism (02826603) Hypothyroidism (acquired) (E03.9) Active confirmed Problem Systemic lupus erythematosus (45250671) Lupus (systemic lupus erythematosus) (M32.9) Active confirmed Problem Chronic pain (37154963) Chronic pain (G89.29) Active confirmed Problem Menopausal symptom (16102199) Hot flashes due to menopause (N95.1) Active confirmed Problem Painful swallowing (12037423) Painful swallowing (R13.10) Active confirmed Problem Swallowing painful (74696873) Swallowing painful (R13.10) Active confirmed Problem Major depression, single episode (37929343) Depression, major, single episode (F32.9) Active confirmed Plan Of Treatment Pending Test Test Name Order Date X ray : Foot, right 3v 02/27/2020 GABRIELA w/Reflex if Positive 07/04/2020 Insurance Providers Payer Name Payer Address Payer Phone Subscriber Number Group Number Insured Name Patient Relationship to Insured Coverage Start Date Coverage End Date UHC Medicare Complete [address] [address] [place] [address] [id number] Mary Beth Egan Self - patient is the insured [facility] [address] [address] [place], [place] [id number] Mary Beth Egan Self - patient is the insured Medical (General) History Surgical History Surgery Date(Month/Year) 1998 Gastric bypass 2009 Botox injection in the vagina 2018 Nasal surgery May and Jun 2019 [place] teeth extraction 1997 Hospitalization History Reason Date(Month/Year) and bypass only
--- OUTSIDE RECORDS SUMMARY | 2024-12-27 14:34 | XMS_ITS | Encounter Summary ---
Author Organization [facility] Address [facility]ly [facility], [address] [place] [address] Care Team Providers Care Psych Np Name Role Phone Jose Cordoba MD Primary Care Provider Encounter Details Date Type Department Care Team (Late st Contact Info) Description 09/22/2024 Prep for Procedure [facility] Day [facility] [address] [place] [address] Li Rodas, DPM [address] [place] [address] Social History Tobacco Use Types Packs/Day Years Used Date Smoking Tobacco: Never Smokeless Tobacco: Never Alcohol Use Standard Drinks/Week Comments Yes 0 (1 standard drink = 0.6 oz pur e alcohol) rarely Comments No Sex and Gender Information Value Date Recorded Sex Assigned at Female 09/27/2024 10:44 AM ROBOTIC TOY INVENTOR Legal Sex Female 1:12 PM CDT Gender Identity Not on file Sexual Orientation Not on file documented as of this encounter Plan of Treatment Not on file documented as of this encounter Results * (ABNORMAL) MRSA SCREENING (09/27/2024 10:49 AM ROBOTIC TOY INVENTOR) SOURCE RESPIRATORY, NOSE 09/27/2024 10:48 AM ROBOTIC TOY INVENTOR [facility] MRSA BY PCR NASAL METHICILLIN RESISTANT STAPH AUREUS DETECTED.(A) METHICILLIN RESISTANT STAPH AUREUS NOT DETECTED 09/29/2024 3:22 PM ROBOTIC TOY INVENTOR [facility] NASAL STRUCTURE / Unknown 09/27/2024 10:49 AM ROBOTIC TOY INVENTOR Li Thouvenot DPM MICROBIOLOGY - GENERAL ORDERAB LES Final Result [facility] [address] [place] [address], [id number] [facility] [address] [place] [address], documented in this encounter Visit Diagnoses Diagnosis Preop testing- Primary Preoperative examination, unspecified documented in this encounter Additional Health Concerns Infection Onset Date Last Indicated Resolved Time MRSA 09/27/2024 09/27/2024 documented as of this encounter Care Teams Psych Np Relationship Specialty Start Date End Date Jose Cordoba MD [address] [facility] [place] [address] PCP - General FAMILY PRACTICE 11/02/23 documented as of this encounter
--- OUTSIDE RECORDS SUMMARY | 2024-12-27 14:34 | XMS_ITS | Encounter Summary ---
Author Organization [facility] Address [address] [place] [address] Care Team Providers Care Floating Labor Gang Supervisor Name Role Phone Jose Cordoba MD Primary Care Provider Reason for Visit * Reason Onset Date Comments Surgery 09/30/2024 Encounter Details Date Type Department Care Team (Late st Contact Info) Description 09/30/2024 Telephone [facility] [address] [place] [address] Bettie Hung, cost accounting manager Social History Tobacco Use Types Packs/Day Years Used Date Smoking Tobacco: Never Smokeless Tobacco: Never Alcohol Use Standard Drinks/Week Comments Yes 0 (1 standard drink = 0.6 oz pur e alcohol) rarely Comments No Sex and Gender Information Value Date Recorded Sex Assigned at Female 09/27/2024 10:44 AM UTILITY TENDER CARDING Legal Sex Female 1:12 PM CDT Gender Identity Not on file Sexual Orientation Not on file documented as of this encounter Plan of Treatment Not on file documented as of this encounter Visit Diagnoses Not on filedocumented in this encounter Additional Health Concerns Infection Onset Date Last Indicated Resolved Time MRSA 09/27/2024 09/27/2024 documented as of this encounter Care Teams Floating Labor Gang Supervisor Relationship Specialty Start Date End Date Jose Cordoba MD [address] [place] [address] [place] [address] PCP - General FAMILY PRACTICE 11/02/23 documented as of this encounter
[2024-12-27] MEDS: MECLIZINE HCL 25 MG TABLET 50 MG PO (14:54)
--- OUTSIDE RECORDS SUMMARY | 2024-12-27 15:15 | XMS_ITS | Clinical Summary ---
Author Organization [facility] [address] [facility] Address [address] [place] [address] Care Team Providers Care Zinc Furnace Charger Name Role Phone Jose Cordoba MD Primary Care Provider [phone] Allergies No known active allergies Medications atorvastatin [...] (07/23/2021): Added automatically from request for surgery [id number] Allergic arthritis of ankle, right 11/06/2020 Overview (11/06/2020): Added automatically from request for surgery [id number] Acquired hallux valgus of right foot 11/06/2020 Overview (11/06/2020): Added automatically from request for surgery [id number] Essential tremor 08/22/2020 Memory loss 08/22/2020 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 Overview (09/20/2019): Added automatically from request for surgery [id number] Deviated nasal septum 09/20/2019 Overview (09/20/2019): Added automatically from request for surgery [id number] Closed fracture of nasal bones 09/20/2019 Overview (09/20/2019): Added automatically from request for surgery [id number] Acquired deformity of nose 09/20/2019 Overview (09/20/2019): Added automatically from request for surgery [id number] Pain in left wrist 08/24/2015 Knee pain [...] on file Legal Sex Female 4:20 AM MOBILE LOUNGE DRIVER Gender Identity Not on file Sexual Orientation Straight 10/09/2020 12 :07 PM MOBILE LOUNGE DRIVER Obstetrics History Last Filed Vital Signs Vital [...] Zoster Vaccine Completed 11/19/2020, 10/15, 09/11/[address] [facility] Address: [address] [address] [place] [address] IDPA [facility] MEDIC[facility] ADVANTAGE IDPA [facility] MEDICARE ADVANTAGE IDPA Care Teams Zinc Furnace Charger Relationship Specialty Start Date End Date Jose Cordoba MD [address] [place] [address] [place] [address] PCP - General Family Medicine 12/08/23
--- OUTSIDE RECORDS SUMMARY | 2024-12-27 15:15 | XMS_ITS | Encounter Summary ---
Author Organization [facility] Address [address] [place] [address] Care Team Providers Care Acid Purifier Name Role Phone Jose Cordoba MD Primary Care Provider Reason for Visit * Reason Onset Date Comments Surgery 09/30/2024 Encounter Details Date Type Department Care Team (Late st Contact Info) Description 09/30/2024 Telephone [facility] [address] [place] [address] Bettie Hung, preformer impregnated fabrics Social History Tobacco Use Types Packs/Day Years Used Date Smoking Tobacco: Never Smokeless Tobacco: Never Alcohol Use Standard Drinks/Week Comments Yes 0 (1 standard drink = 0.6 oz pur e alcohol) rarely Comments No Sex and Gender Information Value Date Recorded Sex Assigned at Female 09/27/2024 10:44 AM BLOOD BANK CUSTODIAN Legal Sex Female 1:12 PM CDT Gender Identity Not on file Sexual Orientation Not on file documented as of this encounter Plan of Treatment Not on file documented as of this encounter Visit Diagnoses Not on filedocumented in this encounter Additional Health Concerns Infection Onset Date Last Indicated Resolved Time MRSA 09/27/2024 09/27/2024 documented as of this encounter Care Teams Acid Purifier Relationship Specialty Start Date End Date Jose Cordoba MD [address] [place] [address] [place] [address] PCP - General FAMILY PRACTICE 11/02/23 documented as of this encounter
--- OUTSIDE RECORDS SUMMARY | 2024-12-27 15:15 | XMS_ITS | CONTINUITY OF CARE DOCUMENT ---
Author Name fei enamorado Address Unknown Organization [facility] Address [address] [facility] [address] [place] [address] Phone [phone] Care Team Providers Care Frit Mixer And Burner Name Role Phone Trevor Dyson MD Unavailable [phone], AKSHAT Unavailable [phone] INSURANCE PROVIDERS Payer name Policy type / Coverage type Joe red green party ID [facility] Medicaid 1 [id number] [facility] [id number]
--- OUTSIDE RECORDS SUMMARY | 2024-12-27 15:15 | XMS_ITS | Encounter Summary ---
Author Organization [facility] Address [facility] [place] [address] Care Team Providers Care Solar Process Engineer Name Role Phone Jose Cordoba MD Primary Care Provider [phone] Encounter Details Date Type Department Care Team (Late st Contact Info) Description 09/22/2024 Prep for Procedure [facility] Day [facility] [address] [place] [address] Li Rodas, DPM [address] [facility] [address] [place] [address] Social History Tobacco Use Types Packs/Day Years Used Date Smoking Tobacco: Never Smokeless Tobacco: Never Alcohol Use Standard Drinks/Week Comments Yes 0 (1 standard drink = 0.6 oz pur e alcohol) rarely Comments No Sex and Gender Information Value Date Recorded Sex Assigned at Female 09/27/2024 10:44 AM CERTIFIED SURGICAL TECHNOLOGIST Legal Sex Female 1:12 PM CDT Gender Identity Not on file Sexual Orientation Not on file documented as of this encounter Plan of Treatment Not on file documented as of this encounter Results * (ABNORMAL) MRSA SCREENING (09/27/2024 10:49 AM CERTIFIED SURGICAL TECHNOLOGIST) SOURCE RESPIRATORY, NOSE 09/27/2024 10:48 AM CERTIFIED SURGICAL TECHNOLOGIST [facility] MRSA BY PCR NASAL METHICILLIN RESISTANT STAPH AUREUS DETECTED.(A) METHICILLIN RESISTANT STAPH AUREUS NOT DETECTED 09/29/2024 3:22 PM CERTIFIED SURGICAL TECHNOLOGIST [facility] NASAL STRUCTURE / Unknown 09/27/2024 10:49 AM CERTIFIED SURGICAL TECHNOLOGIST Li Thouvenot DPM MICROBIOLOGY - GENERAL ORDERAB LES Final Result [facility] [address] [place] [address], [id number] [facility] [address] [place] [address], documented in this encounter Visit Diagnoses Diagnosis Preop testing- Primary Preoperative examination, unspecified documented in this encounter Additional Health Concerns Infection Onset Date Last Indicated Resolved Time MRSA 09/27/2024 09/27/2024 documented as of this encounter Care Teams Solar Process Engineer Relationship Specialty Start Date End Date Jose Cordoba MD [address] [facility] [place] [place] [address] PCP - General FAMILY PRACTICE 11/02/23 documented as of this encounter
--- OUTSIDE RECORDS SUMMARY | 2024-12-27 15:15 | XMS_ITS | Clinical Summary ---
Author Organization [facility] Address [address] [place] [address] Care Team Providers Care Motor Scooter Repairer Name Role Phone Jose Cordoba MD Primary [...] Description 12/13/2024 8:34 AM CDT Anesthesia Event [facility] [address] [place] [address] Yajaira Fu, Nick Brown CRNA 12/13/2024 8:13 AM CDT - 12/13/2024 8:56 AM CDT Surgery [facility] [address] [place] [address] Li Rodas DPM Removal of Hardware Left Foot 12/13/2024 7:02 AM CDT - 12/13/2024 10:15 AM CDT Hospital Encounter [facility] [address] [place] [address] Li Rodas DPM Discharge Disposition: Home or Self Care (Routine Discharge) 12/13/2024 Travel 12/06/2024 Telephone [facility] [address] [place] [address] Bettie Hung, inspector and clipper (Patient requested to reschedule procedure due to being on abx currently for a UTI) 10/04/2024 7:53 AM FRUIT TRIMMER Anesthesia Event [facility] [address] [place] [address] Yajaira Fu, Nick Brown CRNA 10/04/2024 7:30 AM FRUIT TRIMMER - 10/04/2024 9:44 AM FRUIT TRIMMER Surgery [facility] [address] [place] [address] Li Rodas DPM Go Osteotomy Second Metatarsal 10/04/2024 5:55 AM FRUIT TRIMMER - 10/04/2024 4:00 PM FRUIT TRIMMER Hospital Encounter [facility] [address] [place] [address] Li Rodas DPM Discharge Disposition: Home or Self Care (Routine Discharge) 10/04/2024 Travel 09/30/2024 Telephone [facility] [address] [place] [address] Bettie Hung, inspector and clipper from Last 3 Months Family History Medical [...] Sex Assigned at Female 09/27/2024 10:44 AM FRUIT TRIMMER Legal Sex Female 1:12 PM CDT Gender [...] 5 season) 2024 06/09/2021, 05/11/2021 PHQ-2 (Physician [place]) 09/14/2024 DTaP, Tdap and Td Vaccines ( [...] this topic Medical Devices Implanted Type Area Wood Preparation Supervisor Device Identifier Shelf Expiration Date Model / Serial / Lot Smart Toe Ii Intramedullary Arthrodesis Implant Implanted:Qty: 1 on 10/04/2024 by Li Rodas DPM at [facility] Left: Foot [employer] 06/13/2028 [id number] / / [id number] X 12 Snap Off Screw Implanted:Qty: 2 on 10/04/2024 by Li Rodas DPM at [facility] Left: Foot [employer] [id number] / / Viaflow Flowable Placental Tissue Matrix Implanted:Qty: 1 on 10/04/2024 by Li Rodas DPM at [facility] Left: Foot 02/21/2029 [id number] / / [employer] Flowable Placental Tissue Matrix Implanted:Qty: 1 on 12/13/2024 by Li Rodas DPM at [facility] [email or web address] 02/21/2029 [id number] / [id number] / Procedures Procedure Name Priority Date/Time Associated Diagnosis Comments REMOVAL HARDWARE 12/13/2024 8:32 AM CDT T84.84XA Case Notes Mini C-Arm and [place] Smart Toe Implant RemovalC CORRJ HALUX RIGDUS W/IMPLT 10/04/2024 7:55 AM FRUIT TRIMMER M77.42; M20.42 Case Notes [place] [employer]ip StaplesAsnis and Snap Off ScrewsSmart Toe ImplantC REPAIR OF HAMMERTOE,ONE 10/04/2024 7:55 AM FRUIT TRIMMER M77.42; M20.42 Case Notes [place] E[employer] Clip StaplesAsnis and Snap Off ScrewsSmart Toe ImplantC OSTEOTOMY METATARSAL 10/04/2024 7:55 AM FRUIT TRIMMER M77.42; M20.42 Case Notes [place] E[employer] Clip StaplesAsnis and Snap Off ScrewsSmart Toe ImplantC from Last 3 Months Additional Health Concerns Infection Onset Date Last Indicated MRSA 09/27/2024 09/27/2024 Insurance MEDICAID [facility] Care Teams Motor Scooter Repairer Relationship Specialty Start Date End Date Jose Cordoba MD [address] [facility] [address] [place] [address] PCP - General FAMILY PRACTICE 11/02/23
--- OUTSIDE RECORDS SUMMARY | 2024-12-27 15:15 | XMS_ITS | Referral Summary ---
Author Organization [facility] [address] [facility] Address [address] [place] [address] Care Team Providers Care Chief Data Officer Name Role Phone Jose Cordoba MD Primary Care Provider [phone] Allergies No known active allergies Medications atorvastatin [...] (07/23/2021): Added automatically from request for surgery [id number] Allergic arthritis of ankle, right 11/06/2020 Overview (11/06/2020): Added automatically from request for surgery [id number] Acquired hallux valgus of right foot 11/06/2020 Overview (11/06/2020): Added automatically from request for surgery [id number] Essential tremor 08/22/2020 Memory loss 08/22/2020 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 Overview (09/20/2019): Added automatically from request for surgery [id number] Deviated nasal septum 09/20/2019 Overview (09/20/2019): Added automatically from request for surgery [id number] Closed fracture of nasal bones 09/20/2019 Overview (09/20/2019): Added automatically from request for surgery [id number] Acquired deformity of nose 09/20/2019 Overview (09/20/2019): Added automatically from request for surgery [id number] Pain in left wrist 08/24/2015 Knee pain [...] on file Legal Sex Female 4:20 AM NOVELTY DIPPER Gender Identity Not on file Sexual Orientation Straight 10/09/2020 12 :07 PM NOVELTY DIPPER Last Filed Vital Signs Vital Sign Reading [...] Scheduled Procedures Name Priority Associated Diagnoses Date/Ti ia COLONOSCOPY Irritable bowel syndrome with diarrhea Swallowing painful ESOPHAGOGASTRODUODENOSCOPY Irritable bowel syndrome with diarrhea Swallowing painful Insurance [facility] MDCR HMO REF [facility] MEDIC[facility] Address: [address] [address] [place] [address] IDPA [facility] MEDICARE ADVANTAGE [facility] Address: [address] [address] [place] [address] IDPA [facility] MEDICARE ADVANTAGE [facility]IC[facility] Address[facility] [address] [place] [address] IDPA Care Teams Chief Data Officer Relationship Specialty Start Date End Date Jose Cordoba MD [address] [facility] [address] PCP - General Family Medicine 12/08/23
--- NOTE | 2024-12-27 15:45 | ED_ITS ---
HPI - Female Genitourinary General Chief complaint: Dizziness Stated complaint: near syncope Time Seen by Provider: 12/27/24 13:48 Source: patient Mode of arrival: ambulatory Limitations: no limitations History of Present Illness HPI Narrative: patient is a 54-year-old female with significant past medical history that presents today for urinary symptoms. She also has some dizziness but says that she gets dizzy when she has urinary symptoms. She is also very dehydrated she has only been drinking tea and has not been drinking any water. She says despite days as she is showing K-wire. Her friends tell her to drink water she does not list since then. She does have dysuria and increased urinary frequency. MD elicited complaint: dysuria, UTI and flank pain Onset (ago): day(s) Severity: mild Female Urogenital Radiation: Non-Radiating Severity scale (1-10): 2 Quality of pain: cramping Consistency: intermittent Urinary symptoms: Dysuria, Urgency and Frequency Exacerbating factors: none Relieving factors: none Associated symptoms: denies other symptoms Treatment prior to arrival: none Sexual activity: No Patient : No Related Data Home Medications ?Medication ?Instructions ?Recorded ?Confirmed ?Last Taken ?Type mirabegron 25 mg tablet,extended 25 mg PO DAILY 08/27/19 05/25/23 Unknown History release 24 hr (Myrbetriq) mirtazapine 45 mg tablet 45 mg PO HS 08/27/19 05/25/23 08/26/19 History oxybutynin chloride 10 mg 10 mg PO DAILY 08/27/19 05/25/23 Unknown History tablet,extended release 24 hr (Ditropan XL) prazosin 5 mg capsule 5 mg PO HS 08/27/19 05/25/23 Unknown History diazepam 5 mg tablet 5 mg PO BID PRN Anxiety 12/25/20 05/25/23 Unknown History levothyroxine 75 mcg tablet 50 mcg PO DAILY 12/25/20 05/25/23 Unknown History norethindrone 1.5 mg-ethinyl 1 tablet PO DAILY 12/25/20 05/25/23 Unknown History estradiol 30 mcg(21)/iron 75 mg(7) tablet (Aurovela Fe 1.5/30 (28)) pantoprazole 40 mg tablet,delayed 40 mg PO BID 12/25/20 05/25/23 Unknown History release potassium chloride 20 mEq oral 20 meq PO BID 12/25/20 05/25/23 Unknown History packet (Klor-Con) propranolol 40 mg tablet 40 mg PO DAILY 12/25/20 05/25/23 Unknown History buprenorphine HCl 2 mg sublingual 1 tablet sublingual BID 03/12/22 05/25/23 Unknown History tablet diclofenac sodium 1 % topical gel 1 ea topical PRN PRN Pain 03/12/22 05/25/23 Unknown History esomeprazole magnesium 40 mg 1 cap PO DAILY 03/12/22 05/25/23 Unknown History capsule,delayed release fluticasone furoate 100 1 ea inhalation DAILY 03/12/22 05/25/23 Unknown History mcg-vilanterol 25 mcg/dose inhalation powder (Breo Ellipta) venlafaxine 50 mg tablet 1 tablet PO DAILY 03/12/22 05/25/23 Unknown History ziprasidone HCl 80 mg capsule 1 cap PO DAILY 03/12/22 05/25/23 Unknown History buprenorphine HCl 2 mg sublingual 2 mg sublingual DAILY 04/01/22 05/25/23 Unknown History tablet magnesium oxide 400 mg PO DAILY 04/01/22 05/25/23 Unknown History Allergies Allergy/AdvReac Type Severity Reaction Status Date / Time orange juice Allergy Intermediate Hives / Verified 12/27/24 13:48 Red Face Contrast Media AdvReac Intermediate PERFUSE Uncoded 12/27/24 13:48 SWEATING/NAUSEA/VOMITING Review of Systems 2 Review of Systems: All systems reviewed & are unremarkable except as noted in HPI and below Constitutional: Constitutional: Reports as per HPI Eyes: Eyes: Reports no additional eye complaints ENT: Reports system reviewed and no additional complaints, except as documented Cardiovascular: Cardiovascular: Reports no additional cardiovascular complaints Respiratory: Respiratory: Reports no additional respiratory complaints Gastrointestinal: Gastrointestinal: Reports no additional gastrointestinal complaints Genitourinary: Genitourinary: Reports as per HPI and Reports dysuria Musculoskeletal: Musculoskeletal: Reports no additional musculoskeletal complaints Integumentary/Breasts: Skin/Breast: Reports system reviewed and no additional complaints, except as docu Neurologic: Reports system reviewed and no additional complaints, except as documented Psychiatric: Psychiatric: Reports no additional psychiatric complaints Endocrine: Endocrine: Reports no additional endocrine complaints Hematologic/Lymphatic: Hematologic/Lymphatic: Reports no additional hematologic/lymphatic complaints Allergic/Immunologic: Allergic/Immunologic: Reports no additional allergic/immunologic complaints PMFSH Past Medical History Medical History Bilateral hand pain 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 Generalized osteoarthritis of multiple sites Undifferentiated connective tissue disease H/O: gout (~2016) Broken nose X2 Bipolar disorder Schizoaffective disorder History of CVA (cerebrovascular accident) Anxiety Low blood potassium Gout Hypothyroidism Acid reflux Hypercholesterolemia Surgical History Surgical History History of rhinoplasty Hx of cholecystectomy History of gastric bypass Delivery by section Family History Family History Grandparent Hypertension Breast cancer Thyroid disease Son Pancreatitis Liver disease Other Diabetes mellitus Family history of cardiovascular disease Family history of malignant neoplasm Family history of mental disorder Social History Social History Smoking status: Never smoker Alcohol intake: current Alcohol use details: Pt drinks occasionally. Gender identity (if verbalized by the patient): Female Exam 2 Const: General: healthy appearing Nutritional Appearance: well nourished Orientation/consciousness: patient oriented x3 Limitations: no limitations HENMT: Head: normal to inspection Ears: external ears normal F maria elena/Nose/Sinus: Normal external nose present Face and sinus: normal facial exam Mouth: Yes Normal oral and palatal mucosa present Eyes: Conjunctivae: conjunctivae normal Pupils: Equal, round and reactive pupils present EOM: EOMs intact bilaterally Neck: Neck: normal visual inspection Chest: Chest palpation & inspection: normal inspection of the chest Resp: Effort & Inspection: normal respiratory effort Auscultation: clear to auscultation bilaterally Cardio: Rate: regular rate Rhythm: regular rhythm GI: GI Palp: Yes Soft to palpation : General: Yes bladder normal to palpation Back/Spine/Pelvis: Back: no CVA tenderness Skin: General skin exam: normal color Rashes: no rashes Wounds: no wounds Neuro: General: patient oriented x3 Cranial nerves: Yes Nystagmus not present Speech: normal speech Extrem: General: normal to inspection Psych: Appearance: grossly normal Mental Status: mental status grossly normal Affect: normal affect Attitude: cooperative Course Vital Signs Vital signs: Vital Signs Pulse Rate 80 12/27/24 13:35 Temperature 98.4 F 12/27/24 13:39 Pulse Rate 77 12/27/24 15:04 Respiratory Rate 18 12/27/24 13:39 Blood Pressure 118/80 12/27/24 14:25 Pulse Oximetry 98 12/27/24 13:39 Oxygen Delivery Room Air 12/27/24 13:39 MDM - Female Genitourinary MDM Narrative Medical decision making narrative: Patient has symptoms of dysuria, increased urinary frequency so and he says she has UTI and/or a kidney infection. She does have some CVA tenderness on the right side. Pascale simply that she is a kidney infection. She has had stones or foreign says this is not feel like a stones. Will do a UA and do a blood work on her and give her IV fluids because she is severely dehydrated. Patient denied wanting IV fluids and does not want a line put in. UA showed a very very minor UTI. Will send her home with Macrobid. Differential Diagnosis Differential diagnosis: Likely urinary tract infection Medical Records Attestation: I reviewed the patient's medical records. Lab Data Attestation: I reviewed the patient's lab results. 12/27/24 14:07 12/27/24 14:07 Labs: Lab Results 12/27/24 12/27/24 Range/Units 13:43 14:07 WBC 3.8 L (4.8-10.8) K/mm3 RBC 3.75 L (4.20-5.40) M/mm3 Hgb 11.2 L (12.0-15.0) g/dL Hct 32.9 L (35.0-49.0) % MCV 87.7 (78.0-102.0) fL MCH 29.9 (27.0-31.0) pg MCHC 34.0 (32-36) g/dL RDW 13.0 (11.6-14.4) % Plt Count 301 (150-420) K/mm3 MPV 8.9 L (9.2-11.8) fl Immature Gran % (Auto) Not Reportable Neut % (Auto) Not Reportable Lymph % (Auto) Not Reportable Pratt % (Auto) Not Reportable Eos % (Auto) Not Reportable Baso % (Auto) Not Reportable Lymph # (Auto) Not Reportable Pratt # (Auto) Not Reportable Eos # (Auto) Not Reportable Baso # (Auto) Not Reportable Abs Immat Gran (auto) Not Reportable Absolute Neuts (auto) Not Reportable Absolute Nucleated RBC Not Reportable Total Counted 100 Neutrophils % (Manual) 70 (46-73) % Band Neutrophils % 0 (0-6) % Lymphocytes % (Manual) 18 (18-44) % Monocytes % (Manual) 12 H (3-9) % Nucleated RBC % Not Reportable Abs Neuts (Manual) 2.66 (1.7-7.2) K/mm3 Abs Lymphs (Manual) 0.68 L (1.1-4.5) K/mm3 Abs Monocytes (Manual) 0.45 (0.1-0.90) K/mm3 Platelet Estimate Adequate (Adequate) Schistocytes None seen Sodium 128 L (136-145) mmol/L Potassium 4.1 (3.5-5.1) mmol/L Chloride 92 L (98-108) mmol/L Carbon Dioxide 28 (21-32) mmol/L Anion Gap 8 (4-12) mmol/L BUN 7 (7-18) mg/dL Creatinine 0.78 (0.55-1.02) mg/dL Estim Creat Clear Calc 64 ml/min Estimated GFR > 60 (59 - ) Glucose 108 H (70-99) mg/dL Calculated Osmolality 265 L (285-295) mOsm/kg Calcium 8.2 L (8.5-10.1) mg/dL Total Bilirubin 0.4 (0.00-1.00) mg/dL AST 23 (15-37) U/L ALT 20 (14-59) U/L Alkaline Phosphatase 126 H (46-116) U/L Total Protein 6.4 (6.4-8.2) g/dL Albumin 2.8 L (3.4-5.0) g/dL Urine Color Yellow (Yellow) Urine Appearance Clear (Clear) Urine pH 6.0 (5.0-8.0) Ur Specific [place] >= 1.030 H (1.010-1.020) Urine Protein Negative (Negative) Urine Glucose (UA) Negative (Negative) Urine Ketones Negative (Negative) Ur Blood (Man) 1+ H (Negative) Urine Nitrate Negative (Negative) Urine Bilirubin Negative (Negative) Urine Urobilinogen 0.2 (0.2-1.0) mg/dL Leukocyte Esterase Rfl Negative (Negative) ZOLTAN/UL Urine RBC 0-2 (0-2) /hpf Urine WBC None seen (0-3) /hpf Ur Squamous Epith Cells Few (Few) /hpf Urine Bacteria 2+ H (None) /hpf Imaging Data Attestation: I personally reviewed and interpreted this imaging study as follows: Discharge Plan Discharge Clinical Impression: UTI (urinary tract infection), Dehydration Patient Disposition: Home Condition: Stable Instructions: Antibiotic Form, Urinary Tract Infection in Women (ED) Patient Language: Trinidadian Prescriptions: New nitrofurantoin monohyd/m-cryst [Macrobid] 100 mg capsule 100 mg PO Q12H 5 Days Qty: 10 0RF Rx Instructions: must administer with a meal/food No Action oxybutynin chloride [Ditropan XL] 10 mg tablet extended release 24hr 10 mg PO DAILY prazosin 5 mg capsule 5 mg PO HS mirtazapine 45 mg tablet 45 mg PO HS Myrbetriq 25 mg tablet extended release 24 hr 25 mg PO DAILY norethindrone-e.estradiol-iron [Aurovela Fe 1.5/30 (28)] 1.5 mg-30 mcg (21)/75 mg (7) tablet 1 tablet PO DAILY potassium chloride [Klor-Con] 20 mEq packet 20 meq PO BID propranolol 40 mg tablet 40 mg PO DAILY diazepam 5 mg tablet 5 mg PO BID PRN (Reason: Anxiety) levothyroxine 75 mcg tablet 50 mcg PO DAILY Rx Instructions: please call for lab work pantoprazole 40 mg tablet,delayed release (DR/EC) 40 mg PO BID ziprasidone HCl 80 mg capsule 1 cap PO DAILY esomeprazole magnesium 40 mg capsule,delayed release(DR/EC) 1 cap PO DAILY venlafaxine 50 mg tablet 1 tablet PO DAILY buprenorphine HCl 2 mg tablet, sublingual 1 tablet SUBLINGUAL BID diclofenac sodium 1 % gel 1 ea TOPICAL PRN PRN (Reason: Pain) fluticasone furoate-vilanterol [Breo Ellipta] 100-25 mcg/dose blister with device 1 ea INHALATION DAILY meclizine 25 mg tablet 25 mg PO TID PRN (Reason: dizziness) Qty: 30 0RF magnesium oxide 400 mg (241.3 mg magnesium) tablet 400 mg PO DAILY Qty: 30 0RF cephalexin 500 mg capsule 500 mg PO Q8H 7 Days Qty: 21 0RF fluticasone propionate [Flonase Allergy Relief] 50 mcg/actuation spray,suspension 2 spray NASAL DAILY Qty: 9.9 0RF Rx Instructions: administer into each nostril buprenorphine HCl 2 mg tablet, sublingual 2 mg sublingual DAILY magnesium oxide 400 mg magnesium capsule 400 mg PO DAILY atorvastatin 10 mg tablet 10 mg PO DAILY Qty: 90 1RF hydroxychloroquine 200 mg tablet 200 mg PO BID Qty: 60 2RF Follow-up/Referrals: Jose Cordoba M.D. [Primary Care Provider] - Time of Disposition: 15:54
== END 2024-12-27 16:03 | disposition home or self-care (01) ==
PROVIDERS: Emergency Provider Family Medicine; PCP Family Medicine
DX: N39.0 Urinary tract infection, site not specified (principal); E86.0 Dehydration
CPT/HCPCS: 36415; 80053; 81001; 85025; 96360; 99284; A9270

== ENCOUNTER 2025-02-14 12:54 | Outpatient (CLI) | payer MEDICARE, MEDICAID, SELFPAY ==
--- NOTE | ~2025-02-14 | MM_ITS ---
EXAMINATION: MM screening clint BI w mariia HISTORY: Screening mammogram TECHNIQUE: Craniocaudal and mediolateral oblique 3-D tomosynthesis images were obtained and synthetic 2-D images were generated. CAD analysis was submitted and interpreted. COMPARISON: 10/22/2020 through 05/31/2009 BREAST PARENCHYMAL COMPOSITION: The breasts are heterogeneously dense, which may obscure small masses . FINDINGS: Mild diffuse trabecular thickening and skin thickening in the dependent portion of the rosa sts bilaterally may be related to volume overload or cardiac etiology. No suspicious mass, calcificat ion, or architectural distortion are identified in either breast to suggest malignancy. IMPRESSION: 1. No mammographic evidence of malignancy. 2. Findings that may be related to volume overload from renal insufficiency or cardiac etiology. Clin ical correlation is advised. 2. Recommend routine screening mammography in one year. BI-RADS Category 2: Benign finding(s). Reviewed, dictated and finalized at location B. IMPRESSION: 1. No mammographic evidence of malignancy. 2. Findings that may be related to volume overload from renal insufficiency or cardiac etiology. Clinical correlation is advised. 2. Recommend routine screening mammography in one year. BI-RADS Category 2: Benign finding(s).
--- OUTSIDE RECORDS SUMMARY | 2025-02-14 13:03 | XMS_ITS | Patient Health Record ---
[facility] Address [address] [place] [address] Care Team Providers Care Title Checker Name Role Phone Cliff Medina Primary Care Provider [phone] Allergies Allergen (clinical drug ingredient) Drug/Non Drug [...] days Active Vitamin D (Ergocalciferol) 1.25 MG (82297 UT) 1 capsule Orally Once a week [...] Vaccine Route Administration Date Status Comme nts Flulaval IM Intramuscular 07/04/2020 Administered Herpes Zoster (Shingrix) IM Intramuscular 10/31/2020 Admin istered [facility], Herpes Zoster (Shingrix) IM Intramuscular 11/19/2020 Admin istered Social History Tobacco Use: Social History Observation [...] Notes Problem Adjustment disorder with depressed mood (42787848) Adjustment disorder with depressed mood (F43.21) Active confirmed Problem Essential tremor (898787746) Essential tremor (G25.0) Active confirmed Problem Sciatic nerve lesion (776045723) Lesion of sciatic nerve, 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 Problem Irritable bowel syndrome with diarrhea (105020005) Irritable bowel syndrome with diarrhea (K58.0) Active confirmed Problem Essential hypertension (55939344) Essential hypertension (I10) Active confirmed Problem Alcohol abuse (10712934) Alcohol abuse (F10.10) Active confirmed Problem Vitamin D deficiency (33909210) Vitamin D deficiency (E55.9) Active confirmed Problem Gout (12298257) Gout (M10.9) Active confirmed Problem Memory loss (26357768) Memory loss (R41.3) Active confirmed Problem Attention deficit disorder (76795934) ADD (attention deficit disorder) (F90.0) Active confirmed Problem Irritable bowel syndrome (51352966) Irritable bowel syndrome (IBS) (K58.9) Active confirmed Problem Hyperlipidemia (73407340) Hyperlipidemia (E78.5) Active confirmed Problem Generalized anxiety disorder (17211592) PETER (generalized anxiety disorder) (F41.1) Active confirmed Problem Hypothyroidism (90804324) Hypothyroidism (acquired) (E03.9) Active confirmed Problem Systemic lupus erythematosus (91111338) Lupus (systemic lupus erythematosus) (M32.9) Active confirmed Problem Chronic pain (82599248) Chronic pain (G89.29) Active confirmed Problem Menopausal symptom (61340175) Hot flashes due to menopause (N95.1) Active confirmed Problem Painful swallowing (13234148) Painful swallowing (R13.10) Active confirmed Problem Swallowing painful (61165349) Swallowing painful (R13.10) Active confirmed Problem Major depression, single episode (29320730) Depression, major, single episode (F32.9) Active confirmed Plan Of Treatment Pending Test Test Name Order Date X ray : Foot, right 3v 02/27/2020 GABRIELA w/Reflex if Positive 07/04/2020 Insurance Providers Payer Name Payer Address Payer Phone Subscriber Number Group Number Insured Name Patient Relationship to Insured Coverage Start Date Coverage End Date UHC Medicare Complete [address] [address] [place] [address] [id number] Mary Beth Egan Self - patient is the insured [facility] [address] [address] [place], [place] [id number] Mary Beth Egan Self - patient is the insured Medical (General) History Surgical History Surgery Date(Month/Year) 1998 Gastric bypass 2009 Botox injection in the vagina 2018 Nasal surgery May and Jun 2019 [place] teeth extraction 1997 Hospitalization History Reason Date(Month/Year) and bypass only
== END 2025-02-14 12:55 | disposition home or self-care (01) ==
PROVIDERS: PCP Family Medicine; Visit Provider Obstetrics & Gynecology
DX: Z12.31 Encounter for screening mammogram for malignant neoplasm of breast (principal)
CPT/HCPCS: 77063; 77067

== ENCOUNTER 2025-03-22 10:48 | Outpatient (CLI) | payer MEDICARE, MEDICAID, SELFPAY ==
--- NOTE | ~2025-03-22 | XR_ITS ---
XR abdomen/kub 1V Ordering provider: Augusto Chery MD History: . personal history of kidney stones . Comparison: July 19, 2009 FINDINGS: BOWEL: Nonobstructive bowel gas pattern. Fecal material is loaded in the colon. ORGANOMEGALY: None. SIGNIFICANT PATHOLOGIC CALCIFICATIONS: Small calcification is projected on the left sacral area which may indicate stone. Clinical correlation advised. The kidneys are overlapped by fecal material. OTHER: No free air is seen under the diaphragm. IMPRESSION: NO ACUTE ABDOMINAL FINDINGS. Possible stone in the left sacral area. Follow-up and clinical correlation advised. Constipation. Reviewed, dictated and finalized at location A. IMPRESSION: NO ACUTE ABDOMINAL FINDINGS. Possible stone in the left sacral area. Follow-up and clinical correlation advi sed. Constipation.
--- OUTSIDE RECORDS SUMMARY | 2025-03-22 10:54 | XMS_ITS | Patient Health Record ---
Author Organization [facility] Address [address] [place] [address] Care Team Providers Care Franchise Development Manager Name Role Phone Cliff Medina Primary Care [...] days Active Vitamin D (Ergocalciferol) 1.25 MG (48889 UT) 1 capsule Orally Once a week [...] Notes Problem Adjustment disorder with depressed mood (71115395) Adjustment disorder with depressed mood (F43.21) Active confirmed Problem Essential tremor (297952386) Essential tremor (G25.0) Active confirmed Problem Sciatic nerve lesion (580503482) Lesion of sciatic nerve, 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 Problem Irritable bowel syndrome with diarrhea (036728260) Irritable bowel syndrome with diarrhea (K58.0) Active confirmed Problem Essential hypertension (86864760) Essential hypertension (I10) Active confirmed Problem Alcohol abuse (58430414) Alcohol abuse (F10.10) Active confirmed Problem Vitamin D deficiency (78248089) Vitamin D deficiency (E55.9) Active confirmed Problem Gout (86624242) Gout (M10.9) Active confirmed Problem Memory loss (97923476) Memory loss (R41.3) Active confirmed Problem Attention deficit disorder (80631023) ADD (attention deficit disorder) (F90.0) Active confirmed Problem Irritable bowel syndrome (92915277) Irritable bowel syndrome (IBS) (K58.9) Active confirmed Problem Hyperlipidemia (89284004) Hyperlipidemia (E78.5) Active confirmed Problem Generalized anxiety disorder (05995978) PETER (generalized anxiety disorder) (F41.1) Active confirmed Problem Hypothyroidism (53420192) Hypothyroidism (acquired) (E03.9) Active confirmed Problem Systemic lupus erythematosus (24220507) Lupus (systemic lupus erythematosus) (M32.9) Active confirmed Problem Chronic pain (06467661) Chronic pain (G89.29) Active confirmed Problem Menopausal symptom (05948073) Hot flashes due to menopause (N95.1) Active confirmed Problem Painful swallowing (77166391) Painful swallowing (R13.10) Active confirmed Problem Swallowing painful (53414251) Swallowing painful (R13.10) Active confirmed Problem Major depression, single episode (24473253) Depression, major, single episode (F32.9) Active confirmed Plan Of Treatment Pending Test Test Name Order Date X ray : Foot, right 3v 02/27/2020 GABRIELA w/Reflex if Positive 07/04/2020 Insurance Providers Payer Name Payer Address Payer Phone Subscriber Number Group Number Insured Name Patient Relationship to Insured Coverage Start Date Coverage End Date UHC Medicare Complete [address] [address] [place] [address] [id number] Mary Beth Egan Self - patient is the insured [facility] [address] [address] [place], [place] [id number] Mary Beth Egan Self - patient is the insured Medical (General) History Surgical History Surgery Date(Month/Year) 1998 Gastric bypass 2009 Botox injection in the vagina 2018 Nasal surgery May and Jun 2019 [place] teeth extraction 1997 Hospitalization History Reason Date(Month/Year) and bypass only
--- OUTSIDE RECORDS SUMMARY | 2025-03-22 10:54 | XMS_ITS | Encounter Summary ---
Author Organization [facility] Address [address] [place] [address] Care Team Providers Care Intervention Specialist Name Role Phone Jose Cordoba MD Primary Care Provider Reason for Visit * Reason Onset Date Comments Surgery 09/30/2024 Encounter Details Date Type Department Care Team (Late st Contact Info) Description 09/30/2024 Telephone [facility] [address] [place] [address] Bettie Hung, computer builder Social History Tobacco Use Types Packs/Day Years Used Date Smoking Tobacco: Never Smokeless Tobacco: Never Alcohol Use Standard Drinks/Week Comments Yes 0 (1 standard drink = 0.6 oz pur e alcohol) rarely Comments No Sex and Gender Information Value Date Recorded Sex Assigned at Female 09/27/2024 10:44 AM VP OF MARKETING Legal Sex Female 1:12 PM CDT Gender Identity Not on file Sexual Orientation Not on file documented as of this encounter Plan of Treatment Not on file documented as of this encounter Visit Diagnoses Not on filedocumented in this encounter Additional Health Concerns Infection Onset Date Last Indicated Resolved Time MRSA 09/27/2024 09/27/2024 documented as of this encounter Care Teams Intervention Specialist Relationship Specialty Start Date End Date Jose Cordoba MD [address] [place] [address] [place] [address] PCP - General FAMILY PRACTICE 11/02/23 documented as of this encounter
--- OUTSIDE RECORDS SUMMARY | 2025-03-22 10:54 | XMS_ITS | Encounter Summary ---
Author Organization [facility] Address [facility] [place] [address] Care Team Providers Care Air Conditioning Technician Name Role Phone Jose Cordoba MD Primary Care Provider Encounter Details Date Type Department Care Team (Late st Contact Info) Description 09/22/2024 Prep for Procedure [facility] [address] [place] [address] Li Rodas, DPM [address] [facility] [address] [place] [address] Social History Tobacco Use Types Packs/Day Years Used Date Smoking Tobacco: Never Smokeless Tobacco: Never Alcohol Use Standard Drinks/Week Comments Yes 0 (1 standard drink = 0.6 oz pur e alcohol) rarely Comments No Sex and Gender Information Value Date Recorded Sex Assigned at Female 09/27/2024 10:44 AM COMMERCIAL DRAFTER Legal Sex Female 1:12 PM CDT Gender Identity Not on file Sexual Orientation Not on file documented as of this encounter Plan of Treatment Not on file documented as of this encounter Results * (ABNORMAL) MRSA SCREENING (09/27/2024 10:49 AM COMMERCIAL DRAFTER) SOURCE RESPIRATORY, NOSE 09/27/2024 10:48 AM COMMERCIAL DRAFTER [facility] MRSA BY PCR NASAL METHICILLIN RESISTANT STAPH AUREUS DETECTED.(A) METHICILLIN RESISTANT STAPH AUREUS NOT DETECTED 09/29/2024 3:22 PM COMMERCIAL DRAFTER [facility] NASAL STRUCTURE / Unknown 09/27/2024 10:49 AM COMMERCIAL DRAFTER Li Thouvenot DPM MICROBIOLOGY - GENERAL ORDERAB LES Final Result [facility] [address] [place] [place] [address], [id number] [facility] [address] [place] [address], documented in this encounter Visit Diagnoses Diagnosis Preop testing- Primary Preoperative examination, unspecified documented in this encounter Additional Health Concerns Infection Onset Date Last Indicated Resolved Time MRSA 09/27/2024 09/27/2024 documented as of this encounter Care Teams Air Conditioning Technician Relationship Specialty Start Date End Date Jose Cordoba MD [address] [facility] [place] [place] [address] PCP - General FAMILY PRACTICE 11/02/23 documented as of this encounter
--- OUTSIDE RECORDS SUMMARY | 2025-03-22 10:54 | XMS_ITS | Clinical Summary ---
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 Legal Sex Female 1:12 PM CDT Gender [...] 7:27 AM CDT Height 154.9 cm (5' 1) 12/13/2024 7:27 AM CDT Body Mass Index [...] wi th HPV 2000 Mammogram Screening 2010 Pneumococcal Vaccine: 50+ Years (1 of 1 - PCV) 2020 Zoster Vaccines (2 of 2) 11/06/2020 09/11/2020 COVID-19 Vaccine (3 - 2023-2 5 season) 2024 06/09/2021, 05/11/2021 PHQ-2 (Physician [place]) 09/14/2024 DTaP, Tdap and Td Vaccines ( [...] this topic Medical Devices Implanted Type Area Obstetrics Gyn Device Identifier Shelf Expiration Date Model / Serial / Lot Smart Toe Ii Intramedullary Arthrodesis Implant Implanted:Qty: 1 on 10/04/2024 by Li Rodas DPM at [facility] Left: Foot [employer] 06/13/2028 [id number] / / [id number] X 12 Snap Off Screw Implanted:Qty: 2 on 10/04/2024 by Li Rodas DPM at [facility] Left: Foot [employer] DIV [employer] JOSHUA [id number] / / Viaflow Flowable Placental Tissue Matrix Implanted:Qty: 1 on 10/04/2024 by Li Rodas DPM at [facility] Left: Foot 02/21/2029 [id number] / / Viaflow Flowable Placental Tissue Matrix Implanted:Qty: 1 on 12/13/2024 by Li Rodas DPM at [facility] [employer] 02/21/2029 [id number] / [id number] / Additional Health Concerns Infection Onset Date Last Indicated MRSA 09/27/2024 09/27/2024 Insurance MEDICAID [facility] Care Teams Ornament Stapler Relationship Specialty Start Date End Date Jose Cordoba MD [address] [place] [address] PCP - General FAMILY PRACTICE 11/02/23
== END 2025-03-22 10:49 | disposition home or self-care (01) ==
PROVIDERS: PCP Family Medicine; Visit Provider Urology
DX: Z87.442 Personal history of urinary calculi (principal); K59.00 Constipation, unspecified
CPT/HCPCS: 74018

== ENCOUNTER 2025-04-04 09:34 | Outpatient (CLI) | payer MEDICARE, MEDICAID, SELFPAY ==
--- NOTE | ~2025-04-04 | CT_ITS ---
EXAMINATION: CT abdomen pelvis wo con DATE: 04/04/2025 09:56 INDICATION: History of kidney stones TECHNIQUE: Computed tomography (CT) of the abdomen and pelvis was performed without intravenous contr ast. The dose-length product was 352.67 mGy-cm. Automated exposure control and iterative reconstructi on technique were employed. COMPARISON: 03/26/2017 FINDINGS: Heart size normal. No significant pleural or pericardial effusion. Lung bases unremarkable. There are changes of gastric bypass surgery. There are cholecystectomy clips. The liver, spleen, adair creas, adrenal glands and kidneys are unremarkable. Mild lumbar spondylosis. No free air or free flui d. No renal/ureteral stones or hydronephrosis. Nonobstructive bowel gas pattern. IMPRESSION: 1. No acute abdominal abnormality. No evidence for nephrolithiasis. Reviewed, dictated and finalized at location B.
--- OUTSIDE RECORDS SUMMARY | 2025-04-04 09:42 | XMS_ITS | Patient Health Record ---
[facility] Address [address] [place] [address] Care Team Providers Care Alumina Refinery Operator Name Role Phone Cliff Medina Primary Care [...] days Active Vitamin D (Ergocalciferol) 1.25 MG (77136 UT) 1 capsule Orally Once a week [...] Notes Problem Adjustment disorder with depressed mood (96457674) Adjustment disorder with depressed mood (F43.21) Active confirmed Problem Essential tremor (090824497) Essential tremor (G25.0) Active confirmed Problem Sciatic nerve lesion (907838804) Lesion of sciatic nerve, 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 Problem Irritable bowel syndrome with diarrhea (108004200) Irritable bowel syndrome with diarrhea (K58.0) Active confirmed Problem Essential hypertension (89671977) Essential hypertension (I10) Active confirmed Problem Alcohol abuse (16850779) Alcohol abuse (F10.10) Active confirmed Problem Vitamin D deficiency (19486542) Vitamin D deficiency (E55.9) Active confirmed Problem Gout (87129943) Gout (M10.9) Active confirmed Problem Memory loss (53001190) Memory loss (R41.3) Active confirmed Problem Attention deficit disorder (66202193) ADD (attention deficit disorder) (F90.0) Active confirmed Problem Irritable bowel syndrome (61272798) Irritable bowel syndrome (IBS) (K58.9) Active confirmed Problem Hyperlipidemia (04900780) Hyperlipidemia (E78.5) Active confirmed Problem Generalized anxiety disorder (69693422) PETER (generalized anxiety disorder) (F41.1) Active confirmed Problem Hypothyroidism (12088208) Hypothyroidism (acquired) (E03.9) Active confirmed Problem Systemic lupus erythematosus (42187851) Lupus (systemic lupus erythematosus) (M32.9) Active confirmed Problem Chronic pain (71632749) Chronic pain (G89.29) Active confirmed Problem Menopausal symptom (53936034) Hot flashes due to menopause (N95.1) Active confirmed Problem Painful swallowing (23095494) Painful swallowing (R13.10) Active confirmed Problem Swallowing painful (62061320) Swallowing painful (R13.10) Active confirmed Problem Major depression, single episode (54693762) Depression, major, single episode (F32.9) Active confirmed Plan Of Treatment Pending Test Test Name Order Date X ray : Foot, right 3v 02/27/2020 GABRIELA w/Reflex if Positive 07/04/2020 Insurance Providers Payer Name Payer Address Payer Phone Subscriber Number Group Number Insured Name Patient Relationship to Insured Coverage Start Date Coverage End Date UHC Medicare Complete [address] [address] [place] [address] [id number] Mary Beth Egan Self - [facility] the insured [facility] [address] [address] [place], [place] [id number] Mary Beth Egan Self - patient is the insured Medical (General) History Surgical History Surgery Date(Month/Year) 1998 Gastric bypass 2009 Botox injection in the vagina 2018 Nasal surgery May and Jun 2019 [place] teeth extraction 1997 Hospitalization History Reason Date(Month/Year) and bypass only
--- OUTSIDE RECORDS SUMMARY | 2025-04-04 09:42 | XMS_ITS | Encounter Summary ---
Author Organization [facility] Address [facility] [place] [address] Care Team Providers Care Whale Fisherman Name Role Phone Jose Cordoba MD Primary Care Provider Encounter Details Date Type Department Care Team (Late st Contact Info) Description 09/22/2024 Prep for Procedure [facility] [address] [place] [address] Li Rodas, DPM [address] [facility] [address] [facility] [address] [place] [address] Social History Tobacco Use Types Packs/Day Years Used Date Smoking Tobacco: Never Smokeless Tobacco: Never Alcohol Use Standard Drinks/Week Comments Yes 0 (1 standard drink = 0.6 oz pur e alcohol) rarely Comments No Sex and Gender Information Value Date Recorded Sex Assigned at Female 09/27/2024 10:44 AM MONTESSORI PROGRAM DIRECTOR Legal Sex Female 1:12 PM CDT Gender Identity Not on file Sexual Orientation Not on file documented as of this encounter Plan of Treatment Not on file documented as of this encounter Results * (ABNORMAL) MRSA SCREENING (09/27/2024 10:49 AM MONTESSORI PROGRAM DIRECTOR) SOURCE RESPIRATORY, NOSE 09/27/2024 10:48 AM MONTESSORI PROGRAM DIRECTOR [facility] MRSA BY PCR NASAL METHICILLIN RESISTANT STAPH AUREUS DETECTED.(A) METHICILLIN RESISTANT STAPH AUREUS NOT DETECTED 09/29/2024 3:22 PM MONTESSORI PROGRAM DIRECTOR [facility] NASAL STRUCTURE / Unknown 09/27/2024 10:49 AM MONTESSORI PROGRAM DIRECTOR Li Thouvenot DPM MICROBIOLOGY - GENERAL ORDERAB LES Final Result [facility] [address] [place] [address], [id number] [facility] [address] [place] [address], documented in this encounter Visit Diagnoses Diagnosis Preop testing- Primary Preoperative examination, unspecified documented in this encounter Additional Health Concerns Infection Onset Date Last Indicated Resolved Time MRSA 09/27/2024 09/27/2024 documented as of this encounter Care Teams Whale Fisherman Relationship Specialty Start Date End Date Jose Cordoba MD [address] [place] [address] PCP - General FAMILY PRACTICE 11/02/23 documented as of this encounter
--- OUTSIDE RECORDS SUMMARY | 2025-04-04 09:42 | XMS_ITS | Clinical Summary ---
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 Legal Sex Female 1:12 PM CDT Gender [...] 5 season) 2024 06/09/2021, 05/11/2021 PHQ-2 (Physician [place]) 09/14/2024 DTaP, Tdap and Td Vaccines ( [...] this topic Medical Devices Implanted Type Area Teletypesetter Device Identifier Shelf Expiration Date Model / Serial / Lot Smart Toe Ii Intramedullary Arthrodesis Implant Implanted:Qty: 1 on 10/04/2024 by Li Rodas DPM at [facility] Left: Foot [employer] DIV [employer] 06/13/2028 [id number] / / [id number] X 12 Snap Off Screw Implanted:Qty: 2 on 10/04/2024 by Li Rodas DPM at [facility] Left: Foot [employer] DIV [employer] WS12 / / [employer] Flowable Placental Tissue Matrix Implanted:Qty: 1 on 10/04/2024 by Li Rodas DPM at [facility] Left: Foot 02/21/2029 [id number] / / [employer] Flowable Placental Tissue Matrix Implanted:Qty: 1 on 12/13/2024 by Li Rodas DPM at [facility] [employer] 02/21/2029 AMAF-0020 / [id number] / Additional Health Concerns Infection Onset Date Last Indicated MRSA 09/27/2024 09/27/2024 Insurance MEDICAID [facility] Care Teams Cigar Wrapper Relationship Specialty Start Date End Date Jose Cordoba MD [address] [place] [address] PCP - General FAMILY PRACTICE 11/02/23
--- OUTSIDE RECORDS SUMMARY | 2025-04-04 09:42 | XMS_ITS | Encounter Summary ---
Author Organization [facility] Address [address] [place] [address] Care Team Providers Care Greige Goods Marker Name Role Phone Jose Cordoba MD Primary Care Provider Reason for Visit * Reason Onset Date Comments Surgery 09/30/2024 Encounter Details Date Type Department Care Team (Late st Contact Info) Description 09/30/2024 Telephone [facility] [address] [place] [address] Bettie Hung, publication director Social History Tobacco Use Types Packs/Day Years Used Date Smoking Tobacco: Never Smokeless Tobacco: Never Alcohol Use Standard Drinks/Week Comments Yes 0 (1 standard drink = 0.6 oz pur e alcohol) rarely Comments No Sex and Gender Information Value Date Recorded Sex Assigned at Female 09/27/2024 10:44 AM SUPERVISOR HOT DIP TINNING Legal Sex Female 1:12 PM CDT Gender Identity Not on file Sexual Orientation Not on file documented as of this encounter Plan of Treatment Not on file documented as of this encounter Visit Diagnoses Not on filedocumented in this encounter Additional Health Concerns Infection Onset Date Last Indicated Resolved Time MRSA 09/27/2024 09/27/2024 documented as of this encounter Care Teams Greige Goods Marker Relationship Specialty Start Date End Date Jose Cordoba MD [address] [place] [address] [place] [address] PCP - General FAMILY PRACTICE 11/02/23 documented as of this encounter
== END 2025-04-04 09:35 | disposition home or self-care (01) ==
PROVIDERS: PCP Family Medicine; Visit Provider Urology
DX: Z87.442 Personal history of urinary calculi (principal)
CPT/HCPCS: 74176